=== PATIENT | male | born 1940 | race Caucasian/White ===

== ENCOUNTER → 2017-09-10 09:23 | Outpatient (CLI) | payer MEDICARE, SELFPAY ==
[2017-09-10 12:17] LABS: Anion Gap 7 (5-15); BUN 24 mg/dL (7-18); BUN/Creat Ratio 16.3 RATIO (10-20); Calcium,Total 9.6 mg/dL (8.5-10.1); Chloride 100 mmol/L (98-107); Cholesterol 149 mg/dL (200); Creatinine, Serum 1.47 mg/dL (0.70-1.30); EST Glomerular Filtration Rate 50 mL/min (>60); Est Glom Filt Rate - Afr Amer 60 mL/min (>60); Glucose 142 mg/dL (74-106); High Density Lipoprotein 44 mg/dL; Potassium 3.9 mmol/L (3.5-5.1); Sodium Level 137 mmol/L (136-145); Thyroid Stim Hormone (TSH) 2.27 uIU/mL (0.358-3.74); Triglycerides 235 mg/dL; Very Low Density Lipoprotein 47 mg/dL (5-40)
== END ==
PROVIDERS: Family Provider Family Medicine; PCP Family Medicine; Visit Provider Family Medicine
DX: I10 Essential (primary) hypertension (principal); E03.9 Hypothyroidism, unspecified; E78.00 Pure hypercholesterolemia, unspecified
CPT/HCPCS: 36415; 80048; 80061; 84443

== ENCOUNTER → 2019-01-11 07:42 | Outpatient (CLI) | payer MEDICARE, SELFPAY ==
[2018-12-23 11:14] VITALS: BMI 30.4
--- NOTE | 2019-01-11 07:43 | ECHOCS_ITS ---
Reason For Study: Cardiomyopathy Procedure This was a 2D Doppler, Color Flow transthoracic echocardiogram. The study was technically difficult. Contrast injection was performed. Exam performed in department. Left Ventricle Normal LV size. Moderate concentric left ventricular hypertrophy. Left ventricular systolic function is normal. The estimated ejection fraction is 55 %. Unable to assess diastolic dysfunction. No regional wall motion abnormalities noted. Right Ventricle Normal RV size. Normal systolic function. Atria Normal left atrium. Normal right atrium. No doppler evidence for ASD. Mitral Valve There is no mitral annular calcification. Normal mitral valve. Trivial mitral valve insufficiency. Tricuspid Valve Normal tricuspid valve. Trivial tricuspid valve insufficiency. Unable to estimate RV systolic pressure/pulmonary artery pressure due to technically difficult study. Aortic Valve Trisinus/trileaflet aortic valve. Normal aortic valve. Pulmonic Valve The pulmonic valve is not well visualized. Mild (1+) pulmonic valve insufficiency. Great Vessels Normal sized aortic root. Pericardium/Pleural No pericardial effusion. Medication 22 gauge I.V. with prn adaptor inserted into right arm. Diluted definity 3ml given slow IV push to enhance endocardial definition. MMode/2D Measurements & Calculations LVIDd: 5.7 cm IVSd: 1.5 cm Ao root diam: 3.5 cm LVIDs: 4.1 cm LVPWd: 1.6 cm LA dimension: 4.0 cm FS: 28.8 % LAV(MOD-bp): 49.7 ml LA A4 area: 16.9 cm2 RA A4 area: 18.6 cm2 LAV(MOD-bp) Indexed: 22.2 ml/m2 LAV(MOD-sp2): 58.1 ml LAV(MOD-sp4): 40.8 ml Time Measurements MV dec time: 0.32 sec Doppler Measurements & Calculations MV E max tate: 66.3 cm/sec MV V2 max: 124.2 cm/sec MV P1/2t max tate: 91.5 cm/sec MV A max tate: 103.3 cm/sec MV max P.2 mmHg MV P1/2t: 89.3 msec MV E/A: 0.64 MV V2 mean: 69.6 cm/sec MV dec slope: 299.9 cm/sec2 MV mean P.2 mmHg MV V2 VTI: 33.3 cm MVA(P1/2t): 2.5 cm2 Ao V2 max: 119.8 cm/sec LV V1 max: 78.6 cm/sec PA V2 max: 87.6 cm/sec Ao max P.7 mmHg LV V1 max P.5 mmHg Interpretation Summary The study was technically difficult. Contrast injection was performed. Left ventricular systolic function is normal. The estimated ejection fraction is 55 %. Moderate concentric left ventricular hypertrophy. Trivial mitral valve insufficiency. Trivial tricuspid valve insufficiency. Mild (1+) pulmonic valve insufficiency. Unable to estimate RV systolic pressure/pulmonary artery pressure due to technically difficult study. Unable to assess diastolic dysfunction. Ordering Physician: Remy Weiner Referring Physician: Anurag Andre MD Performed By: Damian Aranda RCS
== END ==
PROVIDERS: Family Provider Family Medicine; PCP Family Medicine; Referring Provider Internal Medicine Cardiovascular Disease; Visit Provider Internal Medicine Cardiovascular Disease
DX: I25.10 Atherosclerotic heart disease of native coronary artery without angina pectoris (principal); I42.9 Cardiomyopathy, unspecified
CPT/HCPCS: 93306; Q9957; A4216; C8929

== ENCOUNTER 2019-02-04 10:00 | Outpatient (RCR) | payer MEDICARE, SELFPAY ==
--- NOTE | 2018-12-22 10:19 | HP.PTEVAL_ITS ---
Patient's Visit Information CHRISTINA OWUSU is a 78 year old M referred to Physical Therapy by Eugene Andre MD with a diagnosis of R shoulder pain impingement. Date of Evaluation: 12/22/18 Physical Therapist: Arturo Kent DPT, OCS, CSCS - Visit Plan Frequency: 1x/Week Duration: 4-6 Weeks Plan: weekly to progress ROM and to strength, next session if motion better, gentle phase 3 strength. or increase frequency for US, manual. - Subjective Findings: Fell and hurt L shoulder coming in front door and tripped on threshold. Also fella week ago carrying items and landed on R shoulder. Pain started with first fall in [place] 2 yrs, it has hurt intermittently since then but is worse in the last week. Pain is top front R shoulder and is comfortable at rest. Hurts to reach and move at 9/10 trasnienty. Sleep is not effected sleeping on side. Could lift it fine two weeks ago. It is improving over the last week. Able to do Basic ADLS but has to put R arm in first. Basic ADLS are OK unless reaching up. Activities mostly normal except lifting overhead. - Pain R sholder Pain Intensity (Out of 10): 0 Pain Intensity Range: 0, 8 - Objective Cervical AROM 40 ext adn 50 rotations without pain. Scap ROM is fair and symmetrical. elbow adn wrist aROM WNL. L shoulder to 140 flexion abd, er to 60 IR L5 IR. R shoulder flexion to 90 and abd to 70 limited by pain, er to 60 and IR to L5. - alvarez wu, + neer R, - ext rotation lag test. Most notably painful trying to lift arm overhead. - Goals Goal 1:: 140 aROM R shoulder flexion abd without pain Goal Time Frame: 4-6 Weeks Goal 2:: Patient feel R shoulder 95% back to normal activity Goal Time Frame: 4-6 Weeks Goal 3:: <20% disability on quickdash - Rehabilitation Potential Physical Therapy Diagnosis: R shoulder pain Rehabilitation Potential: Fair - Anticipated Interventions Patient/Client Instruction: Educate patient on: Condition, Plan of Care For the Purpose of:: To decrease pain, To increase tolerance to activity/condition/position, To improve ability of physical actions for home/community/work/leisure Therapeutic Exercise to Include: Strength training, Passive ROM, Active ROM For the Purpose of:: To improve muscle performance and motor function, To increase tolerance to activity/condition/position Thank you for the opportunity to evaluate your patient. For Medicare and Medicare HMO plans, please review the plan of care and approve it. It will need to be FAXED BACK to us at [phone] for Medicare purposes. For Medicare only, by signing this I certify the plan of care. Please let me know if there are questions or concerns regarding this plan of care. Physician Signature: Date:
--- NOTE | 2019-01-21 13:49 | HP.PTREVAL ---
Eugene Andre MD, It has been my pleasure to treat CHRISTINA OWUSU over the last 4 visits for R shoulder pain impingement. Please see the progress note below for an update on the physical therapy plan of care! Subjective: Liked the ish. 3-4x/day and it hurts at first. Did not pull on band. Shoulder still hurts 7/10 daily reaching out side. Activities are normal including dressing , putting cot on still challenging. Reaching out for something can hurt. Objective/Function: AROM to 143 flexion abd and symmetrical with other. Still painful with flexion adn abd LLA but IR/ER, bi and tri not painful. Much better overall but noncomplinace with strengthening has been an issue. Pulleys for ROM working well for him at home. Plan Plan: f/u two weeks for gym strength or band strength flexion, abd, bi, tri. Conitnue intermittently evedry other for the next month to ensure progress towward same goals. Fair prognosis with compliance. Goals Goal 1:: 140 aROM R shoulder flexion abd without pain Goal Time Frame: 4-6 Weeks Goal Progress: Goal Met Goal 2:: Patient feel R shoulder 95% back to normal activity Goal Time Frame: 4-6 Weeks Goal Progress: Progressing Goal 3:: <20% disability on quickdash Anticipated Interventions Patient/Client Instruction: Educate patient on: Condition, Plan of Care For the Purpose of:: To decrease pain, To increase tolerance to activity/condition/position, To improve ability of physical actions for home/community/work/leisure Therapeutic Exercise to Include: Strength training, Passive ROM, Active ROM For the Purpose of:: To improve muscle performance and motor function, To increase tolerance to activity/condition/position Please do not hesitate to contact me at [phone] by phone or if you have questions or concerns regarding this new plan of care! Sincerely, Arturo Kent, DPT, OCS, CSCS
--- NOTE | 2019-02-04 10:17 | HP.PTDCSUM ---
HP - PT D/C Summary It has been my pleasure to treat CHRISTINA OWUSU under orders from Eugene Andre MD, for the diagnosis of R shoulder pain impingement for a total of 5 visit(s). Discharge Date: 02/04/19 Please see the following information for a summary of their discharge status. - Subjective Subjective: Shoulder doing much better,,, a whole better. 90% better. Putting coat on can still cause pain. Ready to be done. - Pain R sholder Pain Intensity (Out of 10): 0 - Overall Improvement % Improvement: 90 - Objective Objective/Function: Full symmetrical aROM without pain today, strength near symmetrical at 4/5 elbow adn shoulder. - Goals Goal 1:: 140 aROM R shoulder flexion abd without pain Goal Progress: Goal Met Goal 2:: Patient feel R shoulder 95% back to normal activity Goal Progress: 90% Goal 3:: <20% disability on quickdash Goal Progress: Goal Met - Plan Plan: d/c to HEP - D/C Information Discharge Comments: Pt doing well and will continue via HEP. If there are questions or concerns regarding this patient's physical therapy, please feel free to call me at [phone]. Thank you for the referral of this patient. Sincerely, Arturo Kent, DPT, OCS, CSCS
== END 2019-02-04 19:00 | disposition home or self-care (01) ==
LOC: PT 10:00
PROVIDERS: Family Provider Family Medicine; PCP Family Medicine; Referring Provider Family Medicine; Visit Provider Family Medicine
DX: M25.811 Other specified joint disorders, right shoulder (principal); W19.XXXD Unspecified fall, subsequent encounter
CPT/HCPCS: 97110; 97162; 97530

== ENCOUNTER → 2019-06-27 10:40 | Outpatient (CLI) | payer MEDICARE, SELFPAY ==
[2018-12-23 11:14] VITALS: BMI 30.4
[2019-06-27 12:50] LABS: ALB/GLOB Ratio 0.9 RATIO (0.9-2.4); AST(SGOT) 20 U/L (15-37); Alanine Aminotransfer ALT/SGPT 20 U/L (16-61); Albumin, Serum 3.6 g/dL (3.2-5.0); Alkaline Phosphatase 66 U/L (45-117); Anion Gap 8 (5-15); BUN 13 mg/dL (7-18); BUN/Creat Ratio 11.1 RATIO (10-20); Calcium,Total 8.9 mg/dL (8.5-10.1); Chloride 100 mmol/L (98-107); Cholesterol 151 mg/dL (200); Creatinine, Serum 1.17 mg/dL (0.70-1.30); EST Glomerular Filtration Rate 64 mL/min (>60); Est Glom Filt Rate - Afr Amer 78 mL/min (>60); Globulin 3.9 g/dL (2.2-4.2); Glucose 222 mg/dL (74-106); High Density Lipoprotein 47 mg/dL; Protein, Total 7.5 g/dL (6.4-8.2); Sodium Level 134 mmol/L (136-145); Thyroid Stim Hormone (TSH) 2.06 uIU/mL (0.358-3.74); Triglycerides 215 mg/dL; Very Low Density Lipoprotein 43 mg/dL (5-40)
== END ==
PROVIDERS: PCP Family Medicine; Visit Provider Family Medicine
DX: E11.69 Type 2 diabetes mellitus with other specified complication (principal)
CPT/HCPCS: 36415; 80053; 80061; 84403; 84443

== ENCOUNTER → 2020-04-17 15:55 | Outpatient (CLI) | payer MEDICARE, SELFPAY ==
[2020-03-19 10:28] VITALS: BMI 29.1
[2020-04-17 18:11] LABS: Anion Gap 7 (5-15); BUN 19 mg/dL (7-18); BUN/Creat Ratio 14.3 RATIO (10-20); Calcium,Total 9.2 mg/dL (8.5-10.1); Chloride 103 mmol/L (98-107); Creatinine, Serum 1.33 mg/dL (0.70-1.30); EST Glomerular Filtration Rate 55 mL/min (>60); Est Glom Filt Rate - Afr Amer 67 mL/min (>60); Glucose 113 mg/dL (74-106); Potassium 3.9 mmol/L (3.5-5.1); Sodium Level 138 mmol/L (136-145); Thyroid Stim Hormone (TSH) 1.83 uIU/mL (0.358-3.74)
== END ==
PROVIDERS: PCP Family Medicine; Referring Provider Family Medicine; Visit Provider Family Medicine
DX: E11.69 Type 2 diabetes mellitus with other specified complication (principal); E03.9 Hypothyroidism, unspecified
CPT/HCPCS: 36415; 80048; 84443

== ENCOUNTER 2020-04-19 16:53 | Outpatient (RCR) | payer MEDICARE, SELFPAY ==
[2020-03-19 10:28] VITALS: BMI 29.1
[2020-04-19] MEDS: COVID-19 VACC, MRNA(PFIZER)/PF 30 MCG/0.3 ML SYRINGE IM (10:34)
[2020-05-10] MEDS: COVID-19 VACC, MRNA(PFIZER)/PF 30 MCG/0.3 ML SYRINGE IM (10:21)
== END 2020-04-19 23:59 ==
LOC: IMMUN 16:53
PROVIDERS: PCP Family Medicine; Visit Provider Family Medicine
DX: Z23 Encounter for immunization (principal)
CPT/HCPCS: 0001A; 0002A

== ENCOUNTER → 2020-07-18 11:24 | Outpatient (CLI) | payer MEDICARE, SELFPAY ==
[2020-03-19 10:28] VITALS: BMI 29.1
[2020-07-18 15:13] LABS: Anion Gap 7 (5-15); BUN 19 mg/dL (7-18); BUN/Creat Ratio 14.7 RATIO (10-20); Chloride 103 mmol/L (98-107); Creatinine, Serum 1.29 mg/dL (0.70-1.30); EST Glomerular Filtration Rate 57 mL/min (>60); Est Glom Filt Rate - Afr Amer 69 mL/min (>60); Glucose 176 mg/dL (74-106); Potassium 4.1 mmol/L (3.5-5.1); Sodium Level 138 mmol/L (136-145)
== END ==
PROVIDERS: PCP Family Medicine; Referring Provider Family Medicine; Visit Provider Family Medicine
DX: E11.69 Type 2 diabetes mellitus with other specified complication (principal)
CPT/HCPCS: 36415; 80048

== ENCOUNTER 2020-09-14 16:35 | Emergency (ER) | payer MEDICARE, SELFPAY ==
[2020-03-19 10:28] VITALS: BMI 29.1
[2020-09-14 16:37] VITALS: BP 129/67; PULSE 77; RESP 14; TEMP 35.3; O2SAT 97; BMI 29.0
--- NOTE | 2020-09-14 18:29 | EX.ED.GENINJ ---
HPI History of Present Illness Chief Complaint: Laceration Informant: patient Narrative Narrative: Patient is a 80-year-old male who presents to the emergency department for falling and hitting his head. He has a laceration above his left eyebrow and under his left eye. He states that he was wearing sunglasses and this is what caused his cut. He is not sure when his last tetanus shot was. He denies being on any blood thinning medications. He denies losing consciousness. No vision changes. No neck pain. Denies a headache. No nausea/vomiting. No chest pain or shortness of breath. He does have an abrasion to his left shoulder and left knee but denies any significant pain otherwise. [facility] Medical History (Updated 09/14/20 @ 19:[address] Sean Grubbs ) Abdominal pain Atherosclerotic heart disease of [place] coronary artery without angina pectoris CHF (congestive heart failure) Essential hypertension GERD (gastroesophageal reflux disease) Nonischemic cardiomyopathy MICHELLE (obstructive sleep apnea) Pure hypercholesterolemia RBBB (right bundle branch block) Type 2 diabetes mellitus Home Medications aspirin 81 mg PO QHS 12/07/12 [History Last Taken Unknown] levothyroxine 50 mcg PO QHS 12/07/12 [History Last Taken Unknown] omeprazole 20 mg PO DAILY 12/07/12 [History Last Taken Unknown] simvastatin 40 mg PO QHS 12/07/12 [History Last Taken Unknown] fexofenadine 180 mg tablet 180 mg PO DAILY PRN 12/21/18 [History Last Taken Unknown] cholecalciferol (vitamin D3) 25 mcg (1,000 unit) capsule 1,000 unit PO DAILY 12/23/18 [History Last Taken Unknown] metformin 500 mg tablet,extended release 24 hr 1,000 mg PO BID tab 12/23/18 [History Last Taken Unknown] omega-3 fatty acids 1,000 mg capsule 1,000 mg PO DAILY 12/23/18 [History Last Taken Unknown] cyanocobalamin (vitamin B-12) 2,500 mcg tablet 1,000 mcg PO DAILY tab 03/19/20 [History Last Taken Unknown] spironolactone 25 mg tablet 25 mg PO DAILY #90 tab 05/07/20 [Rx Last Taken Unknown] losartan 25 mg tablet See Rx Instructions .ROUTE .COMPLEX #90 tablet 05/14/20 [Rx Last Taken Unknown] carvedilol 12.5 mg tablet 18.75 mg PO BID #240 tab 08/27/20 [Rx Last Taken Unknown] Allergy/AdvReac Type Severity Reaction Status Date / Time lidocaine AdvReac Hives Verified 09/14/20 16:36 Penicillins AdvReac Hives Verified 09/14/20 16:36 Sulfa (Sulfonamide AdvReac Hives Verified 09/14/20 16:36 Antibiotics) Family History Mother Colon cancer Surgical History History of right and left heart catheterization (LHC) (~04/20/09) Social History Smoking Status: Former smoker alcohol intake: current details: rare substance use type: does not use caffeine: Yes Type: coffee Number of servings: 2 ROS ROS ED Constitutional Constitutional ED: Denies chills or fever(s) Eyes Eyes: Denies blurry vision or change in vision ENT ENT ED: Denies epistaxis or rhinorrhea Cardiovascular Cardiovascular: Denies chest pain or palpitations Respiratory/Chest Respiratory/Chest: Denies cough, dyspnea or dyspnea on exertion Gastrointestinal Gastrointestinal: Denies abdominal pain, diarrhea, nausea or vomiting Genitourinary Genitourinary ED: Denies dysuria, hematuria or urinary frequency Musculoskeletal Musculoskeletal: Denies back pain or neck pain Integumentary Reports Abrasions and other Details: Facial laceration Neurologic Neurologic: Denies dizziness, headache(s) or weakness EXAM Physical Exam Const Vital Signs: 09/14/20 16:37 09/14/20 19:58 Temperature 95.6 F L Temperature Source Temporal Pulse Rate 77 Respiratory Rate 14 18 Blood Pressure 129/67 H Blood Pressure Mean 87 Pulse Ox 97 Oxygen Delivery Method Room Air Positive well nourished and well developed General Appearance ED: well developed and NAD HEENT Reports normocephalic and moist mucous membranes HEENT Narrative: There is swelling around the left eye with bruising. Midface is stable without tenderness to palpation of the facial bones. Full range of motion of jaw. trauma Eyes PERRL and EOMs intact bilaterally Neck supple General: Negative for tenderness Chest Wall inspection of chest normal Resp normal respiratory effort and clear to auscultation bilaterally Auscultation: Negative for rales, rhonchi or wheezes Cardio regular rate, regular rhythm and no murmurs GI non-tender Palpation: soft; Negative for guarding or rebound tenderness present Back/Spine no CVA tenderness Extremity normal to inspection General Extremety ED: Negative for edema or tenderness General Extremity: Negative for edema Neuro oriented x3, CN's II-XII intact bilaterally and no sensory deficits noted Sensorium / Orientation: alert Motor Exam: strength 5/5 throughout Psych mental status grossly normal Skin Skin Narrative: 4 cm linear laceration above eyebrow. This is not gapped. There is a 2 cm laceration in the left eyebrow which has a slow venous ooze present. Less than 1 cm laceration with abrasion surrounding it under the left eye. PROC Procedures Lacerations facial lac: Length: 0.79 in Depth: Skin Shape: Linear Prep: Sterile Conditions and Shure-Clens Laceration repair: Irrigated and Lidocaine with epi Number of Sutures/[place]: 3 Suture Information: Simple and 6-0 Comment: Laceration under the iron required 1 simple interrupted suture. This laceration was 1 cm in length. MDM MDM MDM Narrative Medical decision making narrative: Patient presents the ED for fall causing a laceration around his left eye as he hit his sunglasses when falling. I do not feel patient requires CT imaging of the head or face as he is low risk for clinically significant intracranial hemorrhage. All the bones are nontender. Will apply let to the area as patient does have significant pain with even light palpation around the wound. Patient updated on his tetanus. Patient's lacerations were repaired using sutures. He tolerated this well without any acute complication. He is to monitor for evidence of infection. He is to return to the emergency department if he develops any significant headache, vision changes. Patient's wound was dressed with antibiotic ointment, Band-Aid. He is to have the sutures removed in 5 to 7 days. He understands and is agreeable to plan. All questions were answered. Discharge Plan Triage Chief Complaint: Laceration ED Provider: Sean Grubbs Dx/Rx/DC Orders Clinical Impression: Face lacerations Instructions: ED Laceration: All Closures Prescriptions: No Action omega-3 fatty acids [Fish Oil Concentrate] 1,000 mg capsule 1,000 mg PO DAILY RF: 0 cholecalciferol (vitamin D3) 1,000 unit capsule 1,000 unit PO DAILY RF: 0 cyanocobalamin (vitamin B-12) 2,500 mcg tablet 1,000 mcg PO DAILY RF: 0 fexofenadine [Jalyn Allergy] 180 mg tablet 180 mg PO DAILY PRN (Reason: Allergy Symptoms) RF: 0 simvastatin 40 MG tablet 40 mg PO QHS RF: 0 levothyroxine 50 MCG tablet 50 mcg PO QHS RF: 0 omeprazole 20 MG capsule 20 mg PO DAILY RF: 0 aspirin 81 MG tablet,chewable 81 mg PO QHS RF: 0 metformin 500 mg tablet extended release 24 hr 1,000 mg PO BID RF: 0 spironolactone 25 mg tablet 25 mg PO DAILY Qty: 90 RF: 3 losartan 25 mg tablet See Rx Instructions .ROUTE .COMPLEX Qty: 90 RF: 3 carvedilol 12.5 mg tablet 18.75 mg PO BID Qty: 240 RF: 3 Primary Care Provider: Eugene Andre Referrals: Eugene Andre MD [Primary Care Provider] - 7 Days for suture removal Disposition Disposition: Home, Self Care Discharge Date/Time: 09/14/20 19:59
[2020-09-14] MEDS: Lidocaine/Epi/Tetracaine 50 ML 1 APPLIC TOPICAL (18:36)
[2020-09-14] MEDS: Diphth,Pertuss(Acell),Tet Vac 0.5 ML Vial IM (19:02)
[2020-09-14] MEDS: Lidocaine 1% /Epi 1:100 (20ml) 20 ML Vial 5 ML INFILT (19:57)
[2020-09-14 19:58] VITALS: RESP 18
== END 2020-09-14 19:59 | disposition home or self-care (01) ==
PROVIDERS: Emergency Provider Emergency Medicine; PCP Family Medicine
DX: S01.112A Laceration without foreign body of left eyelid and periocular area, initial encounter (principal); S01.81XA Laceration without foreign body of other part of head, initial encounter; S40.212A Abrasion of left shoulder, initial encounter; S80.212A Abrasion, left knee, initial encounter; Z23 Encounter for immunization; W19.XXXA Unspecified fall, initial encounter; Y93.9 Activity, unspecified; Y92.9 Unspecified place or not applicable; Y99.9 Unspecified external cause status; I25.10 Atherosclerotic heart disease of native coronary artery without angina pectoris; I11.0 Hypertensive heart disease with heart failure; I50.9 Heart failure, unspecified; E11.9 Type 2 diabetes mellitus without complications; E78.00 Pure hypercholesterolemia, unspecified; K21.9 Gastro-esophageal reflux disease without esophagitis; G47.33 Obstructive sleep apnea (adult) (pediatric); Z79.82 Long term (current) use of aspirin; Z79.84 Long term (current) use of oral hypoglycemic drugs; Z79.899 Other long term (current) drug therapy; Z87.891 Personal history of nicotine dependence
CPT/HCPCS: 12014; 90471; 90715; 99282

== ENCOUNTER → 2020-10-24 08:37 | Outpatient (CLI) | payer MEDICARE, SELFPAY ==
[2020-10-24 10:09] LABS: Hematocrit 40.1 % (40-54); Hemoglobin 13.6 g/dL (13.0-16.5); Mean Corp Hgb Conc 33.9 g/dL (32-36); Mean Corpuscular Hgb 30.8 pg (27.0-32.0); Mean Corpuscular Volume 90.7 fL (80-94); Mean Platelet Vol. 10.2 fl (6.2-12.0); Platelet Count 239 K/mm3 (150-450); RBC Distribution Width CV 12.9 % (11.6-14.6); RBC Distribution Width SD 42.4 fl (35.1-43.9); Red Blood Count 4.42 M/mm3 (4.6-6.2); White Blood Count 5.8 K/mm3 (4.4-11.0)
[2020-10-24 10:25] LABS: Vitamin B12 737 pg/mL (211-911); Vitamin D,25 Hydroxy 59.6 ng/mL
[2020-10-24 10:32] LABS: Anion Gap 6 (5-15); BUN 16 mg/dL (7-18); BUN/Creat Ratio 12.9 RATIO (10-20); Calcium,Total 9.2 mg/dL (8.5-10.1); Chloride 106 mmol/L (98-107); Cholesterol 139 mg/dL (200); Creatinine, Serum 1.24 mg/dL (0.70-1.30); EST Glomerular Filtration Rate 60 mL/min (>60); Est Glom Filt Rate - Afr Amer 72 mL/min (>60); Glucose 143 mg/dL (74-106); High Density Lipoprotein 47 mg/dL; Sodium Level 137 mmol/L (136-145); Thyroid Stim Hormone (TSH) 1.86 uIU/mL (0.358-3.74); Triglycerides 156 mg/dL; Very Low Density Lipoprotein 31 mg/dL (5-40)
== END ==
PROVIDERS: PCP Family Medicine; Referring Provider Family Medicine; Visit Provider Family Medicine
DX: E11.69 Type 2 diabetes mellitus with other specified complication (principal); E11.22 Type 2 diabetes mellitus with diabetic chronic kidney disease; N18.30 Chronic kidney disease, stage 3 unspecified; R53.1 Weakness
CPT/HCPCS: 36415; 80048; 80061; 82306; 82607; 84443; 85027

== ENCOUNTER 2020-10-25 14:30 | Outpatient (RCR) | payer MEDICARE, SELFPAY ==
[2020-09-18 09:36] VITALS: BMI 29.0
--- NOTE | 2020-09-28 09:56 | HP.PTEVAL_ITS ---
Patient's Visit Information CHRISTINA OWUSU is a 80 year old M referred to Physical Therapy by Dr. Eugene Andre MD with a diagnosis of WEAKNESS PROXIMAL LEGS ,FALL AT HOME. Date of Evaluation: 09/28/20 Physical Therapist: Se Gan, PT, Cert MDT, OCS - Visit Plan Frequency: 2x /Week Duration: 4 Weeks Plan: PT INTERVENTIONS LE STRENGTHENING,PROGRESSIVE BALANCE PROGAM,ENDURANCE PROGRAM AND FUNCTIONAL STRENGTHENING. - Subjective This 80 y/o male presents to physical therapy with weakness legs and falls at home. Patient has had progressive weakness in legs causing falls. Patient last fall last Thursday trying to step on cement pad and tripped. Patient get worse in the evening because more fatigue. Patient denies pain. Patient spouse assist with dressing LE with socks and shoes. Patient does sponge bathing due to difficulty in/out of tube. Spouse does all the cooking and cleaning. Patient has cane but doesn't use. Patient 1story home with one step . Patient seen Dr recommended PT due to weakness in legs. Patients goal to get stronger and no falls. SOCAIL: - Objective POSTURE: mild forward posture. GAIT: reciprocal pattern slow bruce ,unsteady. NEURO: denies paresthesia/tingling. BALANCE: GOOD-. STAIRS: one step at time with rail. MMT: quads/hams 4-/5,hip flexion, hip abduction 3+/5,ankle 4/5. FLEXABLITY: hams mild tight - Balance/Special Test Scores Functional Gait Assessment Score: 17 % Disability: 43.3400 CATSIB Score (Max score 120 seconds): 75 - Goals Goal 1:: I with HEP. Goal Time Frame: 4-6 Weeks Goal 2:: Patient increase strength quads/hams 4/5 ,hip flexion/abduction 4- /5,ankle 5/5 to improve gait. Goal Time Frame: 4-6 Weeks Goal 3:: Patient to improve CATSIB by 5 points or > to decrease risk of falls Goal Time Frame: 4-6 Weeks Goal 4:: Patient to improve functional gait assessment score by 5 points or > to decrease risk of falls Goal Time Frame: 4-6 Weeks Goal 5:: Patient to improve LFES score by 5 points or> to improve QOL and function. Goal Time Frame: 4-6 Weeks - Rehabilitation Potential Physical Therapy Diagnosis: This patient has weakness BLE ,falls with impaired balance and gait thus benefit from skilled PT Rehabilitation Potential: Good - Anticipated Interventions Patient/Client Instruction: Educate patient on: Condition, Plan of Care For the Purpose of:: To increase oxygenation perfusion, To improve ability to perform ADL's, To increase tolerance to activity/condition/position, To improve performance and independence with ADL's, To improve ability of physical actions for home/community/work/leisure, To improve gait and locomotor functions, To improve balance, To improve safety with gait, To assume or resume ADL's, To prevent re-injury Therapeutic Exercise to Include: Strength training, Endurance training, Balance training, Flexibilty training, Gait and locomotor training For the Purpose of:: To improve muscle performance and motor function, To improve ability to perform ADL's, To increase tolerance to activity/condition/position, To improve performance and independence with ADL's, To improve ability of physical actions for home/community/work/leisure, To improve gait and locomotor functions, To improve endurance, To improve balance, To improve safety with gait, To assume or resume ADL's, To improve ability to perform tasks related to life management Thank you for the opportunity to evaluate your patient. For Medicare and Medicare HMO plans, please review the plan of care and approve it. It will need to be FAXED BACK to us at [phone] for Medicare purposes. For Medicare only, by signing this I certify the plan of care. Please let me know if there are questions or concerns regarding this plan of care. Physician Signature: Date:
--- NOTE | 2020-10-25 14:59 | HP.PTREVAL_ITS ---
Dr. Eugene Andre MD, It has been my pleasure to treat CHRISTINA OWUSU over the last 9 visits for WEAKNESS PROXIMAL LEGS ,FALL AT HOME. Please see the progress note below for an update on the physical therapy plan of care! Subjective: Doing well ..no falls. Seen DR everything looked good with bloed work Objective/Function: POSTURE: MILD FORWARD POSTURE. GAIT: RECIPROCAL PATTERN MILD FORWARD POSTURE. MMT:QUADS/HAMS 4/5 ,HIP FLEXION. BALANCE: GOOD- no device Plan Plan: cont with POC 2xweek for 3 weeks. PT INTERVENTIONS LE STRENGTHENING,PROGRESSIVE BALANCE PROGAM,ENDURANCE PROGRAM AND FUNCTIONAL STRENGTHENING. Balance/Gait/Functional tests - Balance/Special Test Scores Functional Gait Assessment Score: 17 % Disability: 43.3400 CATSIB Score (Max score 120 seconds): 100 Lower Extremity Functional Score: 43 Goals Goal 1:: I with HEP. Goal Time Frame: 4-6 Weeks Goal Progress: Progressing Goal 2:: Patient increase strength quads/hams 4/5 ,hip flexion/abduction 4- /5,ankle 5/5 to improve gait. Goal Time Frame: 4-6 Weeks Goal Progress: Progressing Goal 3:: Patient to improve CATSIB by 5 points or > to decrease risk of falls Goal Time Frame: 4-6 Weeks Goal Progress: Progressing Goal 4:: Patient to improve functional gait assessment score by 5 points or > to decrease risk of falls Goal Time Frame: 4-6 Weeks Goal Progress: Progressing Goal 5:: Patient to improve LFES score by 5 points or> to improve QOL and function. Goal Time Frame: 4-6 Weeks Goal Progress: Progressing Anticipated Interventions Patient/Client Instruction: Educate patient on: Condition, Plan of Care For the Purpose of:: To increase oxygenation perfusion, To improve ability to perform ADL's, To increase tolerance to activity/condition/position, To improve performance and independence with ADL's, To improve ability of physical actions for home/community/work/leisure, To improve gait and locomotor functions, To improve balance, To improve safety with gait, To assume or resume ADL's, To prevent re-injury Therapeutic Exercise to Include: Strength training, Endurance training, Balance training, Flexibilty training, Gait and locomotor training For the Purpose of:: To improve muscle performance and motor function, To improve ability to perform ADL's, To increase tolerance to activity/condition/position, To improve performance and independence with ADL's, To improve ability of physical actions for home/community/work/leisure, To improve gait and locomotor functions, To improve endurance, To improve balance, To improve safety with gait, To assume or resume ADL's, To improve ability to perform tasks related to life management Please do not hesitate to contact me at [phone] by phone or if you have questions or concerns regarding this new plan of care! Sincerely, Se Gan, PT, Cert MDT, OCS
--- NOTE | 2020-10-26 12:30 | HP.PTDCSUM_ITS ---
It has been my pleasure to treat CHRISTINA OWUSU referred by Dr. Eugene Andre MD, with the diagnosis of WEAKNESS PROXIMAL LEGS ,FALL AT HOME for a total of 9 visit(s). Discharge Date: 10/26/20 Please see the following information for a summary of their discharge status. Subjective: Doing well ..no falls. Seen DR everything looked good with bloOd wo rk % Improvement: 70 Objective/Function: POSTURE: MILD FORWARD POSTURE. GAIT: RECIPROCAL PATTERN MILD FORWARD POSTURE. MMT:QUADS/HAMS 4/5 ,HIP FLEXION. BALANCE: GOOD- no device Goal 1:: I with HEP. Goal Progress: Progressing Goal 2:: Patient increase strength quads/hams 4/5 ,hip flexion/abduction 4- /5,ankle 5/5 to improve gait. Goal Progress: Progressing Goal 3:: Patient to improve CATSIB by 5 points or > to decrease risk of falls Goal Progress: Progressing Goal 4:: Patient to improve functional gait assessment score by 5 points or > to decrease risk of falls Goal Progress: Progressing Goal 5:: Patient to improve LFES score by 5 points or> to improve QOL and function. Goal Progress: Progressing Plan: D/C TO HEP Discharge Comments: HEP If there are questions or concerns regarding this patient's physical therapy, please feel free to call me at [phone]. Thank you for the referral of this patient. Sincerely, Se Gan PT, Cert MDT, OCS Balance/Gait/Functional tests - Balance/Special Test Scores Functional Gait Assessment Score: 17 % Disability: 43.3400 CATSIB Score (Max score 120 seconds): 100 Lower Extremity Functional Score: 43
== END 2020-10-25 19:00 | disposition home or self-care (01) ==
LOC: PT 14:30
PROVIDERS: PCP Family Medicine; Referring Provider Family Medicine; Visit Provider Family Medicine
DX: R53.1 Weakness (principal); W19.XXXD Unspecified fall, subsequent encounter
CPT/HCPCS: 97110; 97162; 97530

== ENCOUNTER → 2021-01-21 11:32 | Outpatient (CLI) | payer MEDICARE, SELFPAY ==
[2021-01-23 16:55] LABS: V-Zoster IgG (Immunity) 2820 index (Immune >165)
== END ==
PROVIDERS: PCP Family Medicine; Referring Provider Family Medicine; Visit Provider Family Medicine
DX: Z01.84 Encounter for antibody response examination (principal); E11.9 Type 2 diabetes mellitus without complications; E78.5 Hyperlipidemia, unspecified
CPT/HCPCS: 36415; 86787

== ENCOUNTER 2021-04-02 23:04 | Emergency (ER) | payer MEDICARE, SELFPAY ==
[2021-04-02 23:05] VITALS: BP 116/64; PULSE 70; RESP 18; TEMP 36.1; O2SAT 96; BMI 27.3
--- NOTE | 2021-04-02 23:12 | EKG12_ITS ---
Test Reason : SYNCOPE Blood Pressure : / mmHG Vent. Rate : 069 BPM Atrial Rate : 069 BPM P-R Int : 254 ms QRS Dur : 120 ms QT Int : 474 ms P-R-T Axes : 046 002 -22 degrees QTc Int : 507 ms Sinus rhythm with 1st degree A-V block with occasional Premature ventricular complexes and Premature atrial complexes Right bundle branch block Abnormal ECG Confirmed by FRANK MONGE, DESIREE ([id number]), online editor SORIN CAMPOS ([id number]) on 04/04/2021 8:57:51 AM Referred By: KELSEY Confirmed By:DESIREE MARIE MD
--- NOTE | 2021-04-02 23:14 | EX.ED.DYSGE1 ---
HPI History of Present Illness Chief Complaint: Syncope Informant: patient and EMS Onset/Context/Timing Onset: Today (JPTA) Context: Gradual Onset Timing: Intermittent (one episode) and Lasts (around 10-15 min) Quality: lightheaded, near-syncope Current Severity: Gone Maximum Severity: Severe Worsened by: standing Relieved by: sitting Associated Symptoms Associated Symptoms: sweating, nausea Narrative Narrative: Patient states he got up tonight, started feeling lightheaded on his way to the bathroom, he was going to urinate. States he felt lightheaded, he sat down on the toilet to urinate, as his lightheadedness became worse and he felt like he was going to pass out and in the process felt sweaty and nauseated. This is all before he attempted to urinate. He was not trying to have a bowel movement. He did not have any other prodromal symptoms such as chest discomfort, palpitations, headache, dyspnea. He has had no recent travel, immobilization, hospitalization, or surgery. No history of DVT or PE. He takes a baby aspirin daily, no anticoagulants. He is on carvedilol for heart failure. Has taken his nighttime medications already tonight. He missed his morning medicines on accident, which he does do not infrequently. EMS reports that upon arrival, his systolic blood pressure was in the 80s and heart rate was in the 40s, the patient was still symptomatic but recovering. By the time they arrived to the hospital his blood pressure was 110 systolic and his heart rate is in the 60s. They also report that the patient's who was not present at this time told them that he seemed like he was not feeling well earlier. The patient denies this. States he was shopping with his earlier. She waited in the car while he went in to do some shopping and came back out and forgot where they parked and spent some time searching for the vehicle which he eventually found, he states other than that, he was fine and he felt like he simply forgot where they parked. He has been eating and drinking normally today. Prior similar symptoms: No Recent Illness/Hospitalization: No [facility] Medical History (Updated 04/03/21 @ 00:[address] Marco A Nolen MD) Abdominal pain Atherosclerotic heart disease of [place] coronary artery without angina pectoris CHF (congestive heart failure) Essential hypertension GERD (gastroesophageal reflux disease) Nonischemic cardiomyopathy MICHELLE (obstructive sleep apnea) Pure hypercholesterolemia RBBB (right bundle branch block) Type 2 diabetes mellitus Home Medications aspirin 81 mg PO QHS 12/07/12 [History Last Taken Unknown] levothyroxine 50 mcg PO QHS 12/07/12 [History Last Taken Unknown] omeprazole 20 mg PO DAILY 12/07/12 [History Last Taken Unknown] simvastatin 40 mg PO QHS 12/07/12 [History Last Taken Unknown] fexofenadine 180 mg tablet 180 mg PO DAILY PRN 12/21/18 [History Last Taken Unknown] cholecalciferol (vitamin D3) 25 mcg (1,000 unit) capsule 1,000 unit PO DAILY 12/23/18 [History Last Taken Unknown] metformin 500 mg tablet,extended release 24 hr 1,000 mg PO BID tab 12/23/18 [History Last Taken Unknown] omega-3 fatty acids 1,000 mg capsule 1,000 mg PO DAILY 12/23/18 [History Last Taken Unknown] cyanocobalamin (vitamin B-12) 2,500 mcg tablet 1,000 mcg PO DAILY tab 03/19/20 [History Last Taken Unknown] spironolactone 25 mg tablet 25 mg PO DAILY #90 tab 05/07/20 [Rx Last Taken Unknown] losartan 25 mg tablet See Rx Instructions .ROUTE .COMPLEX #90 tablet 05/14/20 [Rx Last Taken Unknown] fexofenadine 60 mg PO Q12H 04/02/21 [History Last Taken Unknown] carvedilol 12.5 mg PO BID #240 tab 04/03/21 [Rx Last Taken Unknown] Allergy/AdvReac Type Severity Reaction Status Date / Time lidocaine AdvReac Hives Verified 04/02/21 23:12 Penicillins AdvReac Hives Verified 04/02/21 23:12 Sulfa (Sulfonamide AdvReac Hives Verified 04/02/21 23:12 Antibiotics) Family History Mother Colon cancer Surgical History History of right and left heart catheterization (LHC) (~04/20/09) Social History Smoking Status: Former smoker alcohol intake: current details: rare substance use type: does not use caffeine: Yes Type: coffee Number of servings: 2 ROS ROS ED Constitutional Constitutional ED: Reports malaise and sweats; Denies chills or fever(s) Eyes Eyes: Denies change in vision or diplopia ENT ENT ED: Denies rhinorrhea or sore throat Cardiovascular Cardiovascular: Denies chest pain or palpitations Respiratory/Chest Respiratory/Chest: Denies cough or dyspnea Gastrointestinal Gastrointestinal: Reports nausea; Denies abdominal pain, diarrhea or vomiting Genitourinary Genitourinary ED: Denies dysuria or hematuria Musculoskeletal Musculoskeletal: Denies back pain or neck pain Integumentary Denies abscess or rash Neurologic Neurologic: Denies headache(s), paresthesias or weakness Psychiatric Psychiatric: Denies anxiety or suicidal thoughts EXAM Physical Exam Const Vital Signs: 04/02/21 23:05 04/02/21 23:15 04/03/21 00:37 Temperature 97 F L Temperature Source Temporal Pulse Rate 70 Pulse Rate [Lying] 74 Pulse Rate [Sitting] 79 Pulse Rate [Standing] 77 Respiratory Rate 18 Respiratory Effort Normal Respiratory Pattern Normal Blood Pressure 116/64 Blood Pressure [Lying] 110/67 Blood Pressure [Sitting] 122/41 H Blood Pressure [Standing] 103/62 Blood Pressure Mean 81 Blood Pressure Mean [Lying] 81 Blood Pressure Mean [Sitting] 68 Blood Pressure Mean [Standing] 75 Pulse Ox 96 Oxygen Delivery Method Room Air Positive well nourished and well developed General Appearance ED: well developed and NAD HEENT Reports moist mucous membranes normocephalic and atraumatic Eyes PERRL and EOMs intact bilaterally Neck full ROM and supple Resp normal respiratory effort and clear to auscultation bilaterally Cardio regular rate, regular rhythm, no murmurs and no JVD Cardio Narrative: occasional irregularity GI non-tender and non-distended Auscultation: normoactive bowel sounds Palpation: soft Back/Spine no CVA tenderness General Back: other FROM Extremity normal to inspection, no calf tenderness and no pedal edema General Extremety ED: Negative for edema, pulses abnormal or tenderness General Extremity: Negative for edema or pulses abnormal Neuro oriented x3, CN's II-XII intact bilaterally and no sensory deficits noted Sensorium / Orientation: awake and alert Motor Exam: strength 5/5 throughout Skin no rashes or lesions noted and no wounds MDM MDM MDM Narrative Medical decision making narrative: Patient was monitored for couple hours in the emergency department, he had no recurrent symptoms and felt fine, his vital signs remained stable. Orthostatics are negative. His initial troponin is negative with an unchanged EKG except for some ectopy, and his repeat 2-hour troponin is 15 as well for a delta of 0. Offered admission but he would prefer to go home if it is safe I think this is reasonable, but he is on a good dose of Coreg and since he was bradycardic, I think decreasing this and having him follow-up with his financial accounting analyst would be the best solution at this time. We discussed reasons to return to the ER. We got him out of bed and ambulated him prior to discharge and he did well without any symptoms or major changes in his vital signs. Patient reports that 18.75 mg of carvedilol twice daily is accurate. We will decrease him to 12.5 mg twice daily until he follows up. Lab Data Attestation: I reviewed the patient's lab results. Labs: Laboratory Results - last 24 hr 04/02/21 04/02/21 04/03/21 23:20 23:20 01:19 WBC 5.7 RBC 3.97 L Hgb 12.4 L Hct 37.1 L MCV 93.5 MCH 31.2 MCHC 33.4 RDW Std Deviation 45.3 H RDW Coeff of Barbara 13.3 Plt Count 211 MPV 9.7 Immature Gran % (Auto) 0.200 Neut % (Auto) 63.3 Lymph % (Auto) 22.9 [place] % (Auto) 12.3 H Eos % (Auto) 1.1 Baso % (Auto) 0.2 Absolute Neuts (auto) 3.6 Absolute Lymphs (auto) 1.30 Nucleated RBC % 0 Differential Comment SCANNED Platelet Estimate ADEQUATE Sodium 137 Potassium 3.5 Chloride 104 Carbon Dioxide 24.0 Anion Gap 9 BUN 17 Creatinine 1.45 H Estim Creat Clear Calc 46.08 Est GFR (MDRD) Af Amer 60 Est GFR (MDRD) Non-Af 50 L BUN/Creatinine Ratio 11.7 Glucose 203 H Calcium 8.2 L Troponin I High Sens 15 15 EKG Initial EKG: Attestation: I personally reviewed and interpreted this EKG as follows: Interpretation: Sinus Rhythm, No Acute Injury Pattern, RBBB and AV Block (1st deg) Comments: PVC Prior EKG tracings: available for review Prior: Unchanged Discharge Plan Triage Chief Complaint: Syncope ED Provider: Marco A Nolen Dx/Rx/DC Orders Clinical Impression: Near syncope Instructions: ED Near-Fainting, Uncertain Cause Prescriptions: Continued omega-3 fatty acids [Fish Oil Concentrate] 1,000 mg capsule 1,000 mg PO DAILY RF: 0 cholecalciferol (vitamin D3) 1,000 unit capsule 1,000 unit PO DAILY RF: 0 cyanocobalamin (vitamin B-12) 2,500 mcg tablet 1,000 mcg PO DAILY RF: 0 fexofenadine [Jalyn Allergy] 180 mg tablet 180 mg PO DAILY PRN (Reason: Allergy Symptoms) RF: 0 simvastatin 40 MG tablet 40 mg PO QHS RF: 0 levothyroxine 50 MCG tablet 50 mcg PO QHS RF: 0 omeprazole 20 MG capsule 20 mg PO DAILY RF: 0 aspirin 81 MG tablet,chewable 81 mg PO QHS RF: 0 metformin 500 mg tablet extended release 24 hr 1,000 mg PO BID RF: 0 fexofenadine 30 mg Tablet 60 mg PO Q12H RF: 0 spironolactone 25 mg tablet 25 mg PO DAILY Qty: 90 RF: 3 losartan 25 mg tablet See Rx Instructions .ROUTE .COMPLEX Qty: 90 RF: 3 Changed carvedilol 12.5 mg tablet 12.5 mg PO BID Qty: 240 RF: 3 Primary Care Provider: Eugene Andre Referrals: Eugene Andre MD [Primary Care Provider] - Remy Weiner MD [STAFF PHYSICIAN] - 3-5 Days (Call for appointment to be seen as soon as you are able to be) Disposition Disposition: Home, Self Care
[2021-04-02 23:39] LABS: Absolute Neutrophil Count 3.6 X10^3/uL (2.0-7.7); Basophil# 0.01 X10^3/uL; Basophil% 0.2 % (0-1); Eosinophil# 0.06 X10^3/uL; Eosinophils% 1.1 % (0-5); Hematocrit 37.1 % (40-54); Hemoglobin 12.4 g/dL (13.0-16.5); Lymphocyte % 22.9 % (19-41); Mean Corp Hgb Conc 33.4 g/dL (32-36); Mean Corpuscular Hgb 31.2 pg (27.0-32.0); Mean Corpuscular Volume 93.5 fL (80-94); Mean Platelet Vol. 9.7 fl (6.2-12.0); Monocyte% 12.3 % (0-10); NRBC Flagged by Analyzer 0 % (0-5); Neutrophil % 63.3 % (47-70); POSITIVE COUNT YES; Platelet Count 211 K/mm3 (150-450); RBC Distribution Width CV 13.3 % (11.6-14.6); RBC Distribution Width SD 45.3 fl (35.1-43.9); Red Blood Count 3.97 M/mm3 (4.6-6.2); White Blood Count 5.7 K/mm3 (4.4-11.0)
[2021-04-02 23:41] LABS: Differential Indicated SCAN CRITERIA MET
[2021-04-02 23:58] LABS: Anion Gap 9 (5-15); BUN 17 mg/dL (7-18); BUN/Creat Ratio 11.7 RATIO (10-20); Calcium,Total 8.2 mg/dL (8.5-10.1); Chloride 104 mmol/L (98-107); Creatinine, Serum 1.45 mg/dL (0.70-1.30); EST Glomerular Filtration Rate 50 mL/min (>60); Est Glom Filt Rate - Afr Amer 60 mL/min (>60); Estimated Creatinine Clearance 46.08 ml/min; Glucose 203 mg/dL (74-106); Potassium 3.5 mmol/L (3.5-5.1); Sodium Level 137 mmol/L (136-145); Troponin-I HS 15 pg/mL (3.0-78.0)
[2021-04-03 00:05] LABS: Differential Comment SCANNED; Platelet Estimate ADEQUATE (ADEQ)
[2021-04-03 00:37] VITALS: BP 103/62; BP 110/67; BP 122/41; PULSE 74; PULSE 77; PULSE 79
[2021-04-03 01:46] LABS: Troponin-I HS 15 pg/mL (3.0-78.0)
[2021-04-03 02:01] VITALS: BP 120/77; PULSE 77; RESP 16; O2SAT 95
--- NOTE | 2021-04-03 15:55 | CASEMGMT ---
SOURAV YADAV ED follow-up: SOURAV YADAV placed call to patient's telephone number listed on demographics and patient answered. SOURAV YADAV introduced self and role at [facility]. Patient reports feeling pretty good today and like it never happened. Denies dizziness. SOURAV YADAV discussed dosage change for Coreg as instructed by ER provider and patient voices understanding. Patient reports he has scheduled cardiology follow-up for April 18, 2021. Patient encouraged to keep appointment. Patient instructed to rise slowly when standing to prevent dizziness and falls. Patient replied, I've been doing that for years. Patient denies questions or concerns. SOURAV Coleman CM
== END 2021-04-03 02:08 | disposition home or self-care (01) ==
PROVIDERS: Emergency Provider Emergency Medicine; PCP Family Medicine; Visit Provider Emergency Medicine
DX: I11.0 Hypertensive heart disease with heart failure (principal); I42.8 Other cardiomyopathies; I50.9 Heart failure, unspecified; E11.9 Type 2 diabetes mellitus without complications; R11.0 Nausea; Z87.891 Personal history of nicotine dependence; R00.1 Bradycardia, unspecified; E78.00 Pure hypercholesterolemia, unspecified; I25.10 Atherosclerotic heart disease of native coronary artery without angina pectoris; Z79.82 Long term (current) use of aspirin; K21.9 Gastro-esophageal reflux disease without esophagitis; G47.33 Obstructive sleep apnea (adult) (pediatric); Z79.890 Hormone replacement therapy; Z79.84 Long term (current) use of oral hypoglycemic drugs; Z79.899 Other long term (current) drug therapy
CPT/HCPCS: 80048; 84484; 85025; 93005; 99285

== ENCOUNTER 2021-05-09 07:15 | Outpatient (CLI) | payer MEDICARE, SELFPAY ==
--- NOTE | 2021-05-09 09:36 | STRESSREP ---
Stress Test Report Date: 05-09-2021 Procedure: Pharmacologic stress nuclear imaging study Indications: Chest pain; abnormal ECG/right bundle branch block; CAD; cardiomyopathy; hyperlipidemia; hypertension Consent: Per the patient Procedure: The patient underwent pharmacologic (Regadenoson 0.4mg ) evaluation with a peak heart rate of 90 beats per minute (63%predicted maximal heart rate) and a peak blood pressure of 122/66 mmHg. The baseline ECG demonstrated sinus rhythm; right bundle branch block. The peak pharmacologic ECG demonstrated no obvious ECG changes. There was an occasional PVC pretest, during infusion, and recovery and a rare ventricular couplet during recovery. There was no complaint of chest discomfort during pharmacologic infusion or recovery. The examination was discontinued secondary to completion of protocol. Impression: 1. Pharmacologic (Regadenoson) evaluation 2. Peak pharmacologic ECG with continued right bundle branch block with no obvious ECG changes. 3. There was a rare PVC pretest, during infusion, and recovery and a rare ventricular couplet during recovery. 4. Nuclear images pending Myocardial perfusion imaging study: Technique: The patient was injected with 11.7 millicuries of technetium 99m Cardiolite and subsequently rest SPECT Cardiolite nuclear imaging was obtained in the horizontal long, vertical long, and short axis views. The patient underwent pharmacologic (Regadenoson) evaluation with a peak heart rate of 90 beats per minute (63% percent predicted maximal heart rate) and a peak blood pressure of 122/60 mmHg. The patient was injected with 36.0 millicuries of technetium 99m Cardiolite and subsequently stress SPECT Cardiolite nuclear imaging was obtained in the horizontal long, vertical long, and short axis views. A gated Cardiolite study at peak stress was obtained. Interpretation: Rest and stress SPECT Cardiolite nuclear imaging status post realignment, normalization, and attenuation correction demonstrate at rest the appearance of an area of diminished myocardial perfusion/tracer uptake in portions of the mid anterior segments which appears to improve/normalize following stress. There is end systolic thickening and brightening. There is diminished myocardial thickening and inward wall motion. The reported LVEF is 43%. Impression: 1. Rest and stress SPECT her nuclear imaging demonstrate myocardial perfusion changes at rest which appear to improve and/or normalize following stress appearing compatible with shifting soft tissue attenuation/artifact with no myocardial perfusion changes considered diagnostic for associated stress-induced myocardial ischemia. 2. The gated Cardiolite study reports an LVEF of 43%. This note was generated with [employer] software. It may contain incorrect words, spelling, and punctuation that were not noted in checking the note before signing.
== END 2021-05-09 23:59 | disposition home or self-care (01) ==
PROVIDERS: PCP Family Medicine; Referring Provider Nurse Practitioner Gerontology; Visit Provider Nurse Practitioner Gerontology
DX: I25.10 Atherosclerotic heart disease of native coronary artery without angina pectoris (principal)
CPT/HCPCS: 78452; 93017; A9500; A4216; J2785

== ENCOUNTER → 2021-08-22 | Outpatient (CLI) | payer MEDICARE, SELFPAY ==
[2021-08-22 12:41] LABS: AST(SGOT) 16 U/L (15-37); Alanine Aminotransfer ALT/SGPT 15 U/L (16-61); Albumin, Serum 3.6 g/dL (3.2-5.0); Alkaline Phosphatase 70 U/L (45-117); Bilirubin, Direct 0.25 mg/dL (0.00-0.30); Cholesterol 156 mg/dL (200); Globulin 3.9 g/dL (2.2-4.2); High Density Lipoprotein 51 mg/dL; Protein, Total 7.5 g/dL (6.4-8.2); Triglycerides 168 mg/dL; Very Low Density Lipoprotein 34 mg/dL (5-40)
== END | disposition home or self-care (01) ==
LOC: LAB 10:22
PROVIDERS: PCP Family Medicine; Visit Provider Internal Medicine Cardiovascular Disease
DX: E78.00 Pure hypercholesterolemia, unspecified (principal)
CPT/HCPCS: 36415; 80061; 80076

== ENCOUNTER → 2022-03-27 | Outpatient (CLI) | payer MEDICARE, SELFPAY ==
[2022-03-27 12:58] LABS: Vitamin B12 546 pg/mL (211-911)
[2022-03-27 13:11] LABS: ALB/GLOB Ratio 0.9 RATIO (0.9-2.4); AST(SGOT) 16 U/L (15-37); Alanine Aminotransfer ALT/SGPT 18 U/L (16-61); Albumin, Serum 3.6 g/dL (3.2-5.0); Alkaline Phosphatase 81 U/L (45-117); Anion Gap 9 (5-15); BUN 16 mg/dL (7-18); BUN/Creat Ratio 12.5 RATIO (10-20); Calcium,Total 9.5 mg/dL (8.5-10.1); Chloride 103 mmol/L (98-107); Cholesterol 159 mg/dL (200); Creatinine, Serum 1.28 mg/dL (0.70-1.30); EST Glomerular Filtration Rate 58 mL/min (>60); Est Glom Filt Rate - Afr Amer 70 mL/min (>60); Glucose 135 mg/dL (74-106); High Density Lipoprotein 50 mg/dL; Potassium 3.9 mmol/L (3.5-5.1); Protein, Total 7.6 g/dL (6.4-8.2); Sodium Level 140 mmol/L (136-145); Thyroid Stim Hormone (TSH) 2.08 uIU/mL (0.358-3.74); Triglycerides 188 mg/dL; Very Low Density Lipoprotein 38 mg/dL (5-40)
== END | disposition home or self-care (01) ==
LOC: MFPLAB 09:40
PROVIDERS: PCP Family Medicine; Referring Provider Family Medicine; Visit Provider Family Medicine
DX: E11.22 Type 2 diabetes mellitus with diabetic chronic kidney disease (principal); N18.9 Chronic kidney disease, unspecified
CPT/HCPCS: 36415; 80053; 80061; 82607; 84443

== ENCOUNTER 2022-04-22 00:25 | Emergency (ER) | payer MEDICARE, SELFPAY ==
[2022-04-22 00:26] VITALS: BP 118/62; PULSE 72; RESP 16; RESP 18; TEMP 35.8; O2SAT 99; BMI 26.5
--- NOTE | 2022-04-22 00:52 | EKG12_ITS ---
Test Reason : DYSRHYTHMIA Blood Pressure : / mmHG Vent. Rate : 077 BPM Atrial Rate : 077 BPM P-R Int : 208 ms QRS Dur : 114 ms QT Int : 454 ms P-R-T Axes : -27 104 -42 degrees QTc Int : 513 ms Sinus rhythm with occasional and consecutive Premature ventricular complexes and Premature atrial com plexes Rightward axis Low voltage QRS (Limb Leads) Incomplete right bundle branch block Prolonged QT Abnormal ECG Confirmed by FRANK MONGE, DESIREE ([id number]), news video editor SORIN CAMPOS ([id number]) on 04/23/2022 10:26:23 AM Referred By: FRANSISCA Confirmed By:DESIREE MARIE MD
--- NOTE | 2022-04-22 00:52 | RAD_ITS ---
STUDY: X-RAY CHEST REASON FOR EXAM: Male, 81 years old. Chest pain TECHNIQUE: Single AP portable view of the chest. COMPARISON: December 07, 2012 chest x-ray FINDINGS: The lungs are clear and expanded. There is no demonstrated pleural abnormality. Normal size heart. Normal mediastinum and manuel. Normal visualized pulmonary arteries. Normal visualized aortic arch and descending thoracic aorta. There are diffuse degenerative changes of the visualized thoracic spine. Normal visualized ribs, clavicles, and shoulders. There is no demonstrated abnormality of the visualized soft tissue structures of the upper abdomen. RAD/Chest 1 View (Portable) IMPRESSION: Degenerative changes, as described above. No demonstrated acute cardiopulmonary process. Electronically Signed: Silke Echevarria MD at 1:44 EST ,
--- NOTE | 2022-04-22 00:52 | CT_ITS ---
STUDY: CT BRAIN WITHOUT CONTRAST REASON FOR EXAM: Male, 81 years old. FALL RADIATION DOSAGE (If Supplied By Facility): CTDIvol = ( 44.99 ) mGy, DLP = ( 846.73 ) mGycm TECHNIQUE: Transaxial CT imaging of the brain was performed without administration of intravenous contrast material. Individualized dose optimization techniques were used for this CT. COMPARISON: No relevant priors. FINDINGS: Normal soft tissue structures. Normal calvarium. There is mild cerebral atrophy with widening of the extra-axial spaces and ventricular dilatation. There are areas of decreased attenuation within the white matter tracts of the supratentorial brain, consistent with microvascular disease changes. Normal basal ganglia and thalami. Normal brainstem. There is mild cerebellar atrophy. There is no intracranial hemorrhage. There are no findings of an acute ischemic infarction. Normal visualized paranasal sinuses. CT/Brain/Head without Contrast IMPRESSION: Atrophy no evidence of acute hemorrhage infarct or edema. Electronically Signed: Silke Echevarria MD at 1:42 EST Reading Location ID and State: [facility] / [place] Tel , Service support ,
--- NOTE | 2022-04-22 00:53 | EDS_ITS ---
HPI History of Present Illness Chief Complaint: Dizziness Informant: patient, spouse/S.O. and family Narrative Narrative: History is from patient, his , and his son. Patient was feeling in his normal state of health today. About 1030 tonight he took the garbage out. He evidently has a driveway on a hill. The garbage can got away from him. It pulled him down to the ground and then the lid of the garbage can hit his head. He did receive a small laceration. His cleaned this up. He then went to bed. He got up from bed to go to the bathroom. He felt overall weak and fell to the ground. He did not pass completely out. He did not get a spinning sensation. He had no focal weakness. He had no palpitations fast or slow heartbeat. He never had chest pain or shortness of breath. He did scrape his shoulder and knee on the right side. His states that he falls all the time. He has weakness all the time. He does not pickling grader his legs when he walks. This has been going on for a while. Neither the patient or anyone in the family has noticed any sudden change. However, when EMS showed up he had a blood pressure that was low at about 70 systolic. No reported change in medications. He is on multiple meds for blood pressure. [facility] Medical History (Updated 04/22/22 @ 04:[address] Diogenes Francis MD) Atherosclerotic heart disease of [place] coronary artery without angina pectoris Essential hypertension GERD (gastroesophageal reflux disease) Nonischemic cardiomyopathy MICHELLE (obstructive sleep apnea) Pure hypercholesterolemia RBBB (right bundle branch block) Type 2 diabetes mellitus Home Medications aspirin 81 mg chewable tablet 81 mg PO QHS 12/07/12 [History Last Taken Unknown] levothyroxine 50 mcg tablet 50 mcg PO QHS 12/07/12 [History Last Taken Unknown] omeprazole 20 mg capsule,delayed release 20 mg PO DAILY 12/07/12 [History Last Taken Unknown] simvastatin 40 mg tablet 40 mg PO QHS 12/07/12 [History Last Taken Unknown] fexofenadine 180 mg tablet (Jalyn Allergy) 180 mg PO DAILY PRN Allergy Symptoms 12/21/18 [History Last Taken Unknown] cholecalciferol (vitamin D3) 25 mcg (1,000 unit) capsule 1,000 unit PO DAILY 12/23/18 [History Last Taken Unknown] metformin 500 mg tablet,extended release 24 hr 1,000 mg PO BID 12/23/18 [History Last Taken Unknown] omega-3 fatty acids 1,000 mg capsule (Fish Oil Concentrate) 1,000 mg PO DAILY 12/23/18 [History Last Taken Unknown] cyanocobalamin (vitamin B-12) 2,500 mcg tablet 1,000 mcg PO DAILY 03/19/20 [History Last Taken Unknown] spironolactone 25 mg tablet 25 mg PO DAILY #90 tabs 04/18/21 [Rx Last Taken Unknown] losartan 25 mg tablet See Rx Instructions .Route .COMPLEX #90 tabs 09/27/21 [Rx Last Taken Unknown] carvedilol 12.5 mg tablet 12.5 mg PO BID #180 tabs 02/24/22 [Rx Last Taken Unknown] Allergy/AdvReac Type Severity Reaction Status Date / Time lidocaine AdvReac Hives Verified 02/24/22 08:53 Penicillins AdvReac Hives Verified 02/24/22 08:53 Sulfa (Sulfonamide AdvReac Hives Verified 02/24/22 08:53 Antibiotics) Family History Mother Colon cancer Surgical History History of right and left heart catheterization (LHC) (~04/20/09) Social History Smoking Status: Former smoker alcohol intake: current details: rare substance use type: does not use caffeine: Yes Type: coffee Number of servings: 2 ROS ROS ED Constitutional Constitutional ED: Denies chills, fever(s), subjective or sweats Eyes Eyes: Denies change in vision ENT ENT ED: Denies rhinorrhea or sore throat Cardiovascular Cardiovascular: Denies chest pain, palpitations or racing heartbeat Respiratory/Chest Respiratory/Chest: Denies cough or dyspnea Gastrointestinal Gastrointestinal: Reports other Details: Denies black or bloody stools. ; Denies abdominal pain, diarrhea, melena, nausea or vomiting Genitourinary Genitourinary ED: Denies dysuria Musculoskeletal Musculoskeletal: Denies back pain or neck pain Integumentary Reports Abrasions Neurologic Neurologic: Denies headache(s) Endocrine Endocrinology: Denies polydipsia or polyuria Hematologic/Lymphatic Hematologic/Lymphatic: Denies easy bleeding or easy bruising Allergic/Immunologic Allergic/Immunologic ED: Denies urticaria EXAM Physical Exam Narrative Exam Narrative: Patient is lying in bed. He is awake alert he is a reasonable informant for his past history. He is a good informant for all the events that happened tonight. HEENT shows a cross shaped small laceration on the left upper forehead. This happened when the garbage can hit him. No active bleeding. No step-off. No other signs of trauma. Eyes show normal pupillary function and range of motion Neck shows no tenderness or pain with motion Chest is clear to auscultation. Saturations are 99% to 100% on room air showing no hypoxia. No rib tenderness. No subcu air. Heart is regular with a rate about 70. Occasional PVCs on the monitor peripheral pulses are equal x4 Abdomen is soft nondistended nontender. I feel no mass hear no bruit. Extremities show a little bit abrasion on the shoulder. There is a small abrasion near the fibular head on the right but there is no tenderness in these areas. Neurologically he is awake alert appropriate with no focal weakness or numbness. He does seem globally a little bit weak but evidently this is somewhat near his baseline or is his baseline. Const Vital Signs: 04/22/22 00:26 04/22/22 00:26 04/22/22 02:48 Temperature 96.4 F L 96.4 F L Temperature Source Temporal Temporal Pulse Rate 72 72 79 Respiratory Rate 16 18 18 Blood Pressure 118/62 118/62 95/60 Blood Pressure Mean 80 80 71 Pulse Ox 99 99 96 Oxygen Delivery Method Room Air Room Air Room Air 04/22/22 04:29 04/22/22 05:15 Temperature Temperature Source Pulse Rate 86 Respiratory Rate 16 Blood Pressure 118/78 118/70 Blood Pressure Mean 91 Pulse Ox 97 Oxygen Delivery Method Room Air MDM MDM MDM Narrative Medical decision making narrative: My independent interpretation of the patient's CT shows no acute intracranial process. Final reading shows atrophy but no evidence of acute hemorrhage infarct or edema. My independent interpretation of the patient's single view chest x-ray shows no pneumothorax or acute process. Final reading is similar. Blood work shows normal CBC including white count hemoglobin and platelets. Electrolytes are normal. Mild elevation of creatinine at 1.5. Glucose is up at 207. His TSH is a little high but this is not likely the cause of his symptoms and can be adjusted as an outpatient. Patient was given IV fluids here with the mild dehydration. He is gotten up and walk to the bathroom. He is actually done well. He states he feels good. He did not have a parkinsonian gait. He actually walks pretty well. He wants to go home and his does 2. They feel he is at baseline. This patient actually did not have 2 syncopal episodes. He had a mechanical fall. He then got dizzy and fell a second time but never lost consciousness. He states he does fall like this very frequently so this was really not out of the ordinary for him. Family was concerned because he had a cut on his head from the first fall. The small laceration on his scalp does not open up. There is really nothing that can be sutured. It is just into the epidermis. Patient really does not want it sutured and I think that is reasonable. Lab Data Attestation: I reviewed the patient's lab results. Labs: Laboratory Results - last 24 hr 04/22/22 04/22/22 00:39 00:39 WBC 6.9 RBC 4.44 L Hgb 13.9 Hct 41.6 MCV 93.7 MCH 31.3 MCHC 33.4 RDW Std Deviation 45.0 H RDW Coeff of Barbara 13.2 Plt Count 250 MPV 10.0 Immature Gran % (Auto) 0.400 Neut % (Auto) 69.2 Lymph % (Auto) 21.3 Gilchrist % (Auto) 7.7 Eos % (Auto) 1.0 Baso % (Auto) 0.4 Absolute Neuts (auto) 4.8 Absolute Lymphs (auto) 1.47 Nucleated RBC % 0 Sodium 136 Potassium 4.4 Chloride 103 Carbon Dioxide 25.0 Anion Gap 8 BUN 19 H Creatinine 1.51 H Estim Creat Clear Calc 43.54 Est GFR (MDRD) Af Amer 58 L Est GFR (MDRD) Non-Af 48 L BUN/Creatinine Ratio 12.6 Glucose 207 H Calcium 9.2 Magnesium 1.7 Troponin I High Sens 16 TSH 7.77 H Radiography Diagnostic Testing: Clinical Impression(s) from Imaging Studies Brain CT 04/22/22 00:52 IMPRESSION: Atrophy no evidence of acute hemorrhage infarct or edema. Electronically Signed: Silke Echevarria MD at 1:42 EST , Chest X-Ray 04/22/22 00:52 IMPRESSION: Degenerative changes, as described above. No demonstrated acute cardiopulmonary process. Electronically Signed: Silke Echevarria MD at 1:44 EST , EKG Initial EKG: Comments: My independent interpretation of the patient's EKG done for syncope shows a sinus rhythm with first-degree block and occasional PACs and PVCs. Slight right bundle branch block. Overall rate is 77. CA interval QRS duration and QTc are all a little bit long Discharge Plan Triage Chief Complaint: Dizziness ED Provider: Diogenes Francis Dx/Rx/DC Orders Clinical Impression: Near syncope, Laceration of scalp, Mild dehydration Instructions: ED Fainting, Uncertain Cause Prescriptions: No Action omega-3 fatty acids [Fish Oil Concentrate] 1,000 mg capsule 1,000 mg PO DAILY cholecalciferol (vitamin D3) 1,000 unit capsule 1,000 unit PO DAILY cyanocobalamin (vitamin B-12) 2,500 mcg tablet 1,000 mcg PO DAILY fexofenadine [Jalyn Allergy] 180 mg tablet 180 mg PO DAILY PRN (Reason: Allergy Symptoms) spironolactone 25 mg tablet 25 mg PO DAILY Qty: 90 3RF carvedilol 12.5 mg tablet 12.5 mg PO BID Qty: 180 3RF simvastatin 40 MG tablet 40 mg PO QHS levothyroxine 50 MCG tablet 50 mcg PO QHS omeprazole 20 MG capsule 20 mg PO DAILY aspirin 81 MG tablet,chewable 81 mg PO QHS metformin 500 mg tablet extended release 24 hr 1,000 mg PO BID losartan 25 mg tablet See Rx Instructions .ROUTE .COMPLEX Qty: 90 3RF Dose Instruction: TAKE 1 TABLET DAILY Rx Instructions: TAKE 1 TABLET DAILY Primary Care Provider: Eugene Andre Referrals: Eugene Andre MD [Primary Care Provider] - 1-2 Days if not improving Disposition Disposition: Home, Self Care Discharge Date/Time: 04/22/22 05:16
[2022-04-22] MEDS: 0.9% Normal Saline 1,000 ML 1000 ML IV (00:58)
[2022-04-22 01:05] LABS: Absolute Lymphocyte Count 1.47 X10^3/uL (0.83-4.51); Absolute Neutrophil Count 4.8 X10^3/uL (2.0-7.7); Basophil# 0.03 X10^3/uL; Basophil% 0.4 % (0-1); Eosinophil# 0.07 X10^3/uL; Hematocrit 41.6 % (40-54); Hemoglobin 13.9 g/dL (13.0-16.5); Lymphocyte # 1.47 X10^3/ul (0.83-4.51); Lymphocyte % 21.3 % (19-41); Mean Corp Hgb Conc 33.4 g/dL (32-36); Mean Corpuscular Hgb 31.3 pg (27.0-32.0); Mean Corpuscular Volume 93.7 fL (80-94); Monocyte# 0.53 X10^3/uL; Monocyte% 7.7 % (0-10); NRBC Flagged by Analyzer 0 % (0-5); Neutrophil # 4.78 X10^3/uL (2.7-7.7); Neutrophil % 69.2 % (47-70); Platelet Count 250 K/mm3 (150-450); RBC Distribution Width CV 13.2 % (11.6-14.6); Red Blood Count 4.44 M/mm3 (4.6-6.2); White Blood Count 6.9 K/mm3 (4.4-11.0)
[2022-04-22] MEDS: Aspirin 81 MG TAB.CHEW 324 MG PO (01:17)
[2022-04-22 01:40] LABS: Anion Gap 8 (5-15); BUN 19 mg/dL (7-18); BUN/Creat Ratio 12.6 RATIO (10-20); Calcium,Total 9.2 mg/dL (8.5-10.1); Chloride 103 mmol/L (98-107); Creatinine, Serum 1.51 mg/dL (0.70-1.30); EST Glomerular Filtration Rate 48 mL/min (>60); Est Glom Filt Rate - Afr Amer 58 mL/min (>60); Estimated Creatinine Clearance 43.54 ml/min; Glucose 207 mg/dL (74-106); Magnesium 1.7 mg/dL (1.6-2.6); Potassium 4.4 mmol/L (3.5-5.1); Sodium Level 136 mmol/L (136-145); Thyroid Stim Hormone (TSH) 7.77 uIU/mL (0.358-3.74); Troponin-I HS (w/2H Reflex) 16 pg/mL (3.0-78.0)
[2022-04-22 02:48] VITALS: BP 95/60; PULSE 79; RESP 18; O2SAT 96
[2022-04-22 03:02] LABS: Reflex Troponin-HS? (from REC) Y
[2022-04-22 04:29] VITALS: BP 118/78; PULSE 86; RESP 16; O2SAT 97
[2022-04-22 05:15] VITALS: BP 118/70
[2022-04-25 11:35] LABS: T4 Free Direct 1.16 ng/dL (0.76-1.46)
== END 2022-04-22 05:16 | disposition home or self-care (01) ==
PROVIDERS: Emergency Provider Emergency Medicine; PCP Family Medicine; Visit Provider Emergency Medicine
DX: R55 Syncope and collapse (principal); E11.9 Type 2 diabetes mellitus without complications; E86.0 Dehydration; E78.00 Pure hypercholesterolemia, unspecified; I10 Essential (primary) hypertension; Z87.891 Personal history of nicotine dependence; W19.XXXA Unspecified fall, initial encounter; I25.10 Atherosclerotic heart disease of native coronary artery without angina pectoris; S01.01XA Laceration without foreign body of scalp, initial encounter
CPT/HCPCS: 70450; 71045; 80048; 83735; 84439; 84443; 84484; 85025; 93005; 96360; 99285; A4216

== ENCOUNTER → 2022-05-07 | Outpatient (CLI) | payer MEDICARE, SELFPAY ==
--- NOTE | 2022-05-07 15:11 | RAD_ITS ---
EXAM: XR LUMBOSACRAL SPINE COMPLETE WITH FLEXION/EXTENSION, 6 OR MORE VIEWS CLINICAL INDICATION: leg weakness TECHNIQUE: Lateral, frontal, oblique and lateral flexion/extension views of the lumbar spine and sacrum. This report was created using eelusion report [employer] technology. COMPARISON: None. FINDINGS: VERTEBRAE: Lumbar alignment is normal with no fracture or subluxation. No movement on flexion or extension views. Disc spaces and vertebral body heights are well-maintained. Degenerative spondylosis at L1-2. No spondylolysis or listhesis. DISC SPACES: Marked facet arthrosis at L5-S1. VASCULATURE: Atherosclerotic vascular calcification. GASTROINTESTINAL TRACT: Included bowel gas pattern is non-obstructive. AP, lateral, oblique, flexion and extension views submitted. RAD/L/S Spine w Bend Min 6 Vw IMPRESSION: No fracture or subluxation. Electronically Signed: Kyung Hickey MD at 23:58 EDT Reading Location ID and State: [id number] / Tel , Service support ,
== END | disposition home or self-care (01) ==
LOC: MTRAD 15:09
PROVIDERS: PCP Family Medicine; Visit Provider Family Medicine
DX: R29.898 Other symptoms and signs involving the musculoskeletal system (principal)
CPT/HCPCS: 72114

== ENCOUNTER → 2022-06-12 | Outpatient (CLI) | payer MEDICARE, SELFPAY ==
[2022-06-12 15:18] LABS: Hematocrit 41.5 % (40-54); Hemoglobin 13.9 g/dL (13.0-16.5); Mean Corp Hgb Conc 33.5 g/dL (32-36); Mean Corpuscular Hgb 31.5 pg (27.0-32.0); Mean Corpuscular Volume 94.1 fL (80-94); Mean Platelet Vol. 10.2 fl (6.2-12.0); Platelet Count 255 K/mm3 (150-450); RBC Distribution Width CV 13.2 % (11.6-14.6); RBC Distribution Width SD 45.1 fl (35.1-43.9); Red Blood Count 4.41 M/mm3 (4.6-6.2); White Blood Count 6.8 K/mm3 (4.4-11.0)
[2022-06-12 15:50] LABS: Anion Gap 6 (5-15); BUN 24 mg/dL (7-18); BUN/Creat Ratio 18.9 RATIO (10-20); Chloride 103 mmol/L (98-107); Creatinine, Serum 1.27 mg/dL (0.70-1.30); EST Glomerular Filtration Rate 58 mL/min (>60); Est Glom Filt Rate - Afr Amer 70 mL/min (>60); Glucose 131 mg/dL (74-106); Potassium 4.2 mmol/L (3.5-5.1); Sodium Level 137 mmol/L (136-145); T4 Free Direct 1.31 ng/dL (0.76-1.46); Thyroid Stim Hormone (TSH) 1.79 uIU/mL (0.358-3.74)
== END | disposition home or self-care (01) ==
LOC: MFPLAB 12:04
PROVIDERS: PCP Family Medicine; Visit Provider Family Medicine
DX: N18.30 Chronic kidney disease, stage 3 unspecified (principal); R79.89 Other specified abnormal findings of blood chemistry; E03.9 Hypothyroidism, unspecified
CPT/HCPCS: 36415; 80048; 84439; 84443; 85027

== ENCOUNTER 2022-09-15 14:00 | Outpatient (RCR) | payer MEDICARE, SELFPAY ==
--- NOTE | 2022-06-17 11:24 | HP.PTEVAL ---
Patient's Visit Information CHRISTINA OWUSU is a 82 year old M referred to Physical Therapy by Dr. Eugene Andre MD with a diagnosis of falls, Parkinsons?. Date of Evaluation: 06/17/22 Physical Therapist: Arturo Kent, GRISELDAT, OCS, CSCS - Visit Plan Frequency: 2x /Week Duration: 4-6 Weeks Plan: 2x/week for 4-6 weeks, please teach HS and quad stretching for HEP, please teach general LE and core strengthening patient can eventually do at home as safety allows. Please ensure patient gets rollator and I in use and set up.Please teach weight shift ex. Reviewed with patient and today improtance of doing the things he can on his own despite being a challenge(legs into bed, out of chair), also the benefits of strength and stretch ex, also the need to get a rollator whcih i gave him a picture of and a way to get it at [employer] . He will pursue prescription from Dr. Andre and take to Nasim Francis. Also reviewed balance safety HO given to patient. - Subjective Im so afraid of falling. present and talking and he falls down alot, once every 3 months. Fallen 4 x, one time due to dehydration, other times he trips on his short steps shuffling feet. She helps him get dressed and put shoes on. Dresses self otherwise. Lives with adn two grandkids. No steps at home, 4 to enter with railing and he can do them. Scooter electric at home but does not use, has cane that he doesn't use but no walker. Sleep is OK.Needs help to get out of chair and legs into bed at home.No spinning, No numbness in legs or neuropathy but has DM. 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 Spends day doing nothing watching TV, no regular ex. - Objective Needs help from to exit chair. Walks slow with short shuffly steps until cued. Ran out of dopamine 4 days ago. Exits another chair with UE with great effort I. Slow transfer to table lying needing extra time and effort for LE into. sits up slow but and Min A for intiial lift of upper body off bed. reflexes 0/3 patella and achilles. Sensation LE WNL to gross light touch. coordination to reciprocal tap is slow UE and LE. Strength hips:3, knees 3+, ankles 4-. Flexibility is very tight in HS, ITB and quads and psoas. LB AROM funcitonal but max limited in extension and mod in fexion. core strength 3- to 3 abs and extensors. Pt is safer and does much better with rolling walker which I am recommending and give pics of today to get on own with instruction how. - Balance/Special Test Scores Functional Gait Assessment Score: 19 % Disability: 36.6700 Lower Extremity Functional Score: 10 30 Second Chair Rise Test Seconds: 2 - Goals Goal 1:: 5 on 30 second sit to stand test Goal Time Frame: 4-6 Weeks Goal 2:: I appropriate HEP to limit fall risk(strength adn stretch and use of rolling walker) Goal Time Frame: 4-6 Weeks Goal 3:: FGA score to improve balance Goal Time Frame: 4-6 Weeks Goal 4:: Pt and feel 50% better in overall mobility Goal Time Frame: 4-6 Weeks Goal 5:: 30 score on LEFS Goal Time Frame: 4-6 Weeks - Rehabilitation Potential Physical Therapy Diagnosis: frequent falls, unsteady with weight shift and sedentary causing mobility issues. Rehabilitation Potential: Fair - Anticipated Interventions Patient/Client Instruction: Educate patient on: Condition, Plan of Care For the Purpose of:: To improve nutrient delivery to tissue, To increase oxygenation perfusion, To improve muscle performance and motor function, To increase tolerance to activity/condition/position, To improve gait and locomotor functions, To improve health of tissue Therapeutic Exercise to Include: Strength training, Balance training, Postural training, Flexibilty training, Passive ROM, Active ROM For the Purpose of:: To improve nutrient delivery to tissue, To increase oxygenation perfusion, To improve muscle performance and motor function, To increase tolerance to activity/condition/position Thank you for the opportunity to evaluate your patient. For Medicare and Medicare HMO plans, please review the plan of care and approve it. It will need to be FAXED BACK to us at [phone] for Medicare purposes. For Medicare only, by signing this I certify the plan of care. Please let me know if there are questions or concerns regarding this plan of care. Physician Signature: Date:
--- NOTE | 2022-09-15 15:23 | HP.PTDCSUM ---
Discharge Summary D/C summary: It has been my pleasure to treat CHRISTINA OWUSU referred by Dr. Eugene Andre MD, with the diagnosis of falls, Parkinsons? for a total of 8 visit(s). Discharge Date: 09/15/22 Please see the following information for a summary of their discharge status. Subjective Subjective: adn patient do not know why it has been so long since he has been rechecked. Not sure why they went 3 weeks without having PT at one point. Doing home exercises at kitchen sink. Getting stronger. Enjoys exercises. Sleeping well at home Activities at home are pretty normal, uses rollator to get around outside at home, Holds on to iyer inside. No pain.\ Ready to be done with PT. To doctor in September. agrees 60% better. Overall Improvement % Improvement: 60 Objective Objective/Function: FGA is improving bu tlikely will be a limit to that with his PD symptoms. TUG is improving but still limited by lack of FW weight shift. Overall feeling better and moving better adn will continue to do as well as he is compliant with HEP. Goals Goal 1:: 5 on 30 second sit to stand test Goal Progress: Goal Met Goal 2:: I appropriate HEP to limit fall risk(strength adn stretch and use of rolling walker) Goal Progress: Goal Met Goal 3:: FGA score to improve balance Goal Progress: Goal 4:: Pt and feel 50% better in overall mobility Goal Progress: Goal Met Goal 5:: 30 score on LEFS Goal Progress: Goal Met Plan Plan: d/c D/C Information d/c sentence: If there are questions or concerns regarding this patient's physical therapy, please feel free to call me at [phone]. Thank you for the referral of this patient. Sincerely, Arturo Kent, DPT, OCS, CSCS Balance/Gait/Functional tests Balance/Special Test Scores Functional Gait Assessment Score: 21 % Disability: 30.0000 Lower Extremity Functional Score: 45 TUG Test Time Seconds: 5 Tug Test: <10 sec.=free mobile 30 Second Chair Rise Test Seconds: 2
== END 2022-09-15 19:00 | disposition home or self-care (01) ==
LOC: PT 14:00
PROVIDERS: PCP Family Medicine; Referring Provider Family Medicine; Visit Provider Family Medicine
DX: G20 Parkinson's disease (principal); R29.6 Repeated falls
CPT/HCPCS: 97110; 97162; 97164; 97530

== ENCOUNTER 2022-12-23 14:24 | Observation (INO) | payer MEDICARE, SELFPAY ==
[2022-12-23 14:27] VITALS: BP 131/75; PULSE 82; RESP 16; TEMP 36.7; O2SAT 95; BMI 25.8
--- NOTE | 2022-12-23 14:42 | EKG12_ITS ---
Test Reason : Blood Pressure : / mmHG Vent. Rate : 093 BPM Atrial Rate : 093 BPM P-R Int : 218 ms QRS Dur : 106 ms QT Int : 400 ms P-R-T Axes : 032 127 -10 degrees QTc Int : 497 ms Sinus rhythm with 1st degree A-V block with occasional Premature ventricular complexes and Premature atrial complexes Right axis deviation Incomplete right bundle branch block Right ventricular hypertrophy with repolarization abnormality Abnormal QRS-T angle, consider primary T wave abnormality Prolonged QT Abnormal ECG Confirmed by CLARI MONGE, MORA ([id number]), editor farm journal ZEINA GARCIA ([id number]) on 12/29/2022 6:56:44 AM Referred By: Confirmed By:VAISHALI MONTAGUE MD
--- NOTE | 2022-12-23 14:42 | RAD_ITS ---
STUDY: X-RAY CHEST REASON FOR EXAM: Male, 82 years old. weakness TECHNIQUE: AP portable COMPARISON: April 22, 2022 FINDINGS: The lungs are clear and expanded. There is no demonstrated pleural abnormality. Normal size heart. Normal mediastinum and manuel. Normal visualized pulmonary arteries. Normal visualized aortic arch and descending thoracic aorta. Degenerative changes changes of the dorsal spine. Normal visualized ribs, clavicles, and shoulders. There is no demonstrated abnormality of the visualized soft tissue structures of the upper abdomen. RAD/Chest 1 View (Portable) IMPRESSION: No acute cardiopulmonary pathology Electronically Signed: Gabino Beach MD at 16:39 EST ,
--- NOTE | 2022-12-23 14:48 | EX.ED.DYSGE1 ---
HPI <NAKITA Perez - Last Filed: 12/23/22 17:26> History of Present Illness Chief Complaint: Weakness Narrative Narrative: 82-year-old male with past medical history of HTN, HLD, DM2, Parkinson's disease presents with generalized weakness. His states he woke up at 3 AM and sat on the edge of the bed because he had to pee. She normally helps him stand and then he can walk unassisted but he could not get up. He laid down on the side of the bed with his legs hanging off the edge until the morning when she called her brother to come help him up. Even though he could stand with assistance he could not walk. He denies pain or injury. His primary care doctor is prescribing his Parkinson's medications. He has no recent fever or illness. He has normal p.o. intake and no bladder or bowel changes. [facility] <NAKITA Perez - Last Filed: 12/23/22 17:26> [facility] Medical History Atherosclerotic heart disease of [place] coronary artery without angina pectoris Essential hypertension GERD (gastroesophageal reflux disease) Nonischemic cardiomyopathy MICHELLE (obstructive sleep apnea) Pure hypercholesterolemia RBBB (right bundle branch block) Type 2 diabetes mellitus Home Medications aspirin 81 mg chewable tablet 81 mg PO QHS 12/07/12 [History Last Taken 12/22/22] omeprazole 20 mg capsule,delayed release 20 mg PO DAILY 12/07/12 [History Last Taken 12/22/22] simvastatin 40 mg tablet 40 mg PO QHS CHOLESTEROL 12/07/12 [History Last Taken 12/22/22] fexofenadine 180 mg tablet (Jalyn Allergy) 180 mg PO DAILY Allergy Symptoms 12/21/18 [History Last Taken 12/22/22] cholecalciferol (vitamin D3) 25 mcg (1,000 unit) capsule 1,000 unit PO DAILY 12/23/18 [History Last Taken 12/22/22] omega-3 fatty acids 1,000 mg capsule (Fish Oil Concentrate) 1,000 mg PO QHS SUPPLEMENT 12/23/18 [History Last Taken 12/22/22] cyanocobalamin (vitamin B-12) 2,500 mcg tablet 1,000 mcg PO DAILY 02/01/21 [History Last Taken 12/22/22] carvedilol 12.5 mg tablet 12.5 mg PO BID #180 tabs 02/24/22 [Rx Last Taken 12/22/22] levothyroxine 50 mcg tablet 50 mcg PO QHS #90 tabs 08/01/22 [Rx Last Taken 12/22/22] carbidopa ER 25 mg-levodopa 100 mg tablet,extended release 1 tab PO TID PARKINSONS 12/23/22 [History Last Taken 12/22/22] losartan 25 mg tablet 25 mg PO QHS BLOOD PRESSURE 12/23/22 [History Last Taken 12/22/22] metformin 1,000 mg tablet 1,000 mg PO BID DIABETES 12/23/22 [History Last Taken 12/22/22] Allergy/AdvReac Type Severity Reaction Status Date / Time lidocaine AdvReac Hives Verified 02/24/22 08:53 Penicillins AdvReac Hives Verified 02/24/22 08:53 Sulfa (Sulfonamide AdvReac Hives Verified 02/24/22 08:53 Antibiotics) Family History Mother Colon cancer Surgical History History of right and left heart catheterization (LHC) (~04/20/09) Social History Smoking Status: Former smoker alcohol intake: current details: rare substance use type: does not use caffeine: Yes Type: coffee Number of servings: 2 ROS <NAKITA Perez - Last Filed: 12/23/22 17:26> ROS ED ROS Narrative Constitutional: Negative for fever, chills, malaise. CVS: Negative for palpitations, chest pain, syncope. Respiratory: Negative for shortness of breath, cough. GI: Negative for abdominal pain, nausea, vomiting, diarrhea, melena, hematochezia. : Negative for dysuria. Neuro: Negative for headache, motor/sensory dysfunction. EXAM <NAKITA Perez - Last Filed: 12/23/22 17:26> Physical Exam Narrative Exam Narrative: CONST: Patient sitting in no acute distress. EYES: Normal inspection. NECK: Normal inspection. RESP: No respiratory distress, CTAB. CVS: Regular rate and rhythm, no murmur, no gallop. ABD: Soft and nontender, no guarding or rebound, nondistended. SKIN: Color normal, no rash, warm, dry, intact. EXTREMITIES: Moving all extremities, 5/5 aircraft restorer strength and DF/PF. Upper extremities have cogwheel rigidity. No tremor. NEURO: Alert to self, place, age. States year is 1920. PSYCH: Normal affect. Const Vital Signs: 12/23/22 14:27 12/23/22 15:01 Temperature 98.0 F Temperature Source Temporal Pulse Rate 82 Respiratory Rate 16 Respiratory Pattern Normal Blood Pressure 131/75 H Blood Pressure Mean 93 Pulse Ox 95 Oxygen Delivery Method Room Air <Dr. French Zelaya DO - Last Filed: 12/23/22 17:54> Physical Exam Const Vital Signs: 12/23/22 14:27 12/23/22 15:01 Temperature 98.0 F Temperature Source Temporal Pulse Rate 82 Respiratory Rate 16 Respiratory Pattern Normal Blood Pressure 131/75 H Blood Pressure Mean 93 Pulse Ox 95 Oxygen Delivery Method Room Air MDM <NAKITA Perez - Last Filed: 12/23/22 17:26> [facility] Narrative Medical decision making narrative: History gathered from: Patient and spouse Patient presents with generalized weakness. He could not get out of bed or ambulate today. No other specific complaints. He is awake alert with stable vital signs. His exam overall is unremarkable?he is alert and oriented x3 which states is baseline. He is moving all extremities and has no focal neurological deficits. Labs show white count of 12.7 with normal hemoglobin and platelets. Creatinine is 1.47 with normal electrolytes. This appears within his normal range. Glucose is 199 with normal CO2 and anion gap. Urinalysis is negative for infection. Patient is too weak to ambulate and will need admitted for further work-up and placement. Case was discussed with the hospitalist who also requested a respiratory viral panel which was added. Lab Data Attestation: I reviewed the patient's lab results. Labs: Laboratory Results - last 24 hr 12/23/22 12/23/22 14:50 16:45 WBC 12.7 H RBC 4.54 L Hgb 13.9 Hct 41.7 MCV 91.9 MCH 30.6 MCHC 33.3 RDW Std Deviation 44.7 H RDW Coeff of Barbara 13.4 Plt Count 225 MPV 9.5 Immature Gran % (Auto) 0.600 Neut % (Auto) 85.1 H Lymph % (Auto) 4.8 L [place] % (Auto) 9.3 Eos % (Auto) 0.0 Baso % (Auto) 0.2 Absolute Neuts (auto) 10.8 H Absolute Lymphs (auto) 0.61 L Nucleated RBC % 0 Sodium 136 Potassium 4.0 Chloride 100 Carbon Dioxide 28.0 Anion Gap 8 BUN 18 Creatinine 1.47 H Estim Creat Clear Calc 45.29 Est GFR (MDRD) Af Amer 59 L Est GFR (MDRD) Non-Af 49 L BUN/Creatinine Ratio 12.2 Glucose 199 H Calcium 9.3 Urine Color Yellow Urine Clarity Clear Urine pH 5.0 Ur Specific [place] 1.020 Urine Protein 30 H Urine Glucose (UA) 50 H Urine Ketones 5 H Urine Occult Blood 10 H Urine Nitrite Negative Urine Bilirubin Negative Urine Urobilinogen Normal Ur Leukocyte Esterase 25 H Urine RBC 0 SEEN Urine WBC 0-5 SEEN Ur Squamous Epith Cells 0 SEEN Urine Bacteria 0 SEEN Urine Mucus 0 SEEN Radiography Diagnostic Testing: Clinical Impression(s) from Imaging Studies Chest X-Ray 12/23/22 14:42 IMPRESSION: No acute cardiopulmonary pathology Electronically Signed: Gabino Beach MD at 16:39 EST Reading Location ID and State: [address] [place] [address] Tel , Service support , ED attending interpretation of 1- view chest x-ray shows normal heart size, no acute infiltrate. EKG Initial EKG: Attestation: I personally reviewed and interpreted this EKG as follows: Interpretation: Sinus Rhythm and AV Block Comments: Sinus rhythm first-degree AV block with occasional PVCs Right axis deviation Incomplete RBBB Prior EKG tracings: available for review Prior: Unchanged <Dr. French Zelaya, DO - Last Filed: 12/23/22 17:54> [facility] Narrative Medical decision making narrative: History gathered from: Patient and spouse Patient presents with generalized weakness. He could not get out of bed or ambulate today. No other specific complaints. He is awake alert with stable vital signs. His exam overall is unremarkable?he is alert and oriented x3 which states is baseline. He is moving all extremities and has no focal neurological deficits. Labs show white count of 12.7 with normal hemoglobin and platelets. Creatinine is 1.47 with normal electrolytes. This appears within his normal range. Glucose is 199 with normal CO2 and anion gap. Urinalysis is negative for infection. Patient is too weak to ambulate and will need admitted for further work-up and placement. Case was discussed with the hospitalist who also requested a respiratory viral panel which was added. This patient was seen with a PA/SHEET METAL DUCT INSTALLER APPRENTICE Individually assessed they patient including history and physical. I have reviewed everything on the chart that is available and agree with the documentation provided by the PA/SHEET METAL DUCT INSTALLER APPRENTICE including discussion about the assessment, treatment plan, discussion, and return precautions. 82-year-old male with history of Parkinson's presenting generally weak and unable to ambulate. His is able to get him up under her strength as well. Exam is unremarkable. Patient has no focal neurologic deficits. Vital signs are stable he is afebrile. Blood work-up shows leukocytosis 12.7. Hemoglobin 13.9. Platelets are normal at 225. Creatinine is elevated today at 1.47 and he was given a liter of normal saline. Urinalysis negative for infection. Chest x-ray my interpretation shows no acute process. Radiologist services and agrees. EKG sinus rhythm with first-degree AV block without sign of ischemic change. Since patient is unable to ambulate he will be admitted to hospital further monitoring. We will order a COVID and lateral panel which is pending and will be reviewed on the floor. Impression: 1 weakness 2. Leukocytosis 3. Dehydration Lab Data Labs: Laboratory Results - last 24 hr 12/23/22 12/23/22 14:50 16:45 WBC 12.7 H RBC 4.54 L Hgb 13.9 Hct 41.7 MCV 91.9 MCH 30.6 MCHC 33.3 RDW Std Deviation 44.7 H RDW Coeff of Barbara 13.4 Plt Count 225 MPV 9.5 Immature Gran % (Auto) 0.600 Neut % (Auto) 85.1 H Lymph % (Auto) 4.8 L [place] % (Auto) 9.3 Eos % (Auto) 0.0 Baso % (Auto) 0.2 Absolute Neuts (auto) 10.8 H Absolute Lymphs (auto) 0.61 L Nucleated RBC % 0 Sodium 136 Potassium 4.0 Chloride 100 Carbon Dioxide 28.0 Anion Gap 8 BUN 18 Creatinine 1.47 H Estim Creat Clear Calc 45.29 Est GFR (MDRD) Af Amer 59 L Est GFR (MDRD) Non-Af 49 L BUN/Creatinine Ratio 12.2 Glucose 199 H Calcium 9.3 Urine Color Yellow Urine Clarity Clear Urine pH 5.0 Ur Specific [place] 1.020 Urine Protein 30 H Urine Glucose (UA) 50 H Urine Ketones 5 H Urine Occult Blood 10 H Urine Nitrite Negative Urine Bilirubin Negative Urine Urobilinogen Normal Ur Leukocyte Esterase 25 H Urine RBC 0 SEEN Urine WBC 0-5 SEEN Ur Squamous Epith Cells 0 SEEN Urine Bacteria 0 SEEN Urine Mucus 0 SEEN Radiography Diagnostic Testing: Clinical Impression(s) from Imaging Studies Chest X-Ray 12/23/22 14:42 IMPRESSION: No acute cardiopulmonary pathology Electronically Signed: Gabino Beach MD at 16:39 EST Reading Location ID and State: [address] [place] [address] Tel [phone], Service support , Discharge Plan Triage Chief Complaint: Weakness ED Midlevel Provider: Daria Vargas ED Provider: French Zelaya Dx/Rx/DC Orders Clinical Impression: Generalized weakness, Unable to ambulate Primary Care Provider: Eugene Andre
[2022-12-23] MEDS: 0.9% Normal Saline (1000mL) 1,000 ML 999 ML IV (15:03)
[2022-12-23 15:05] LABS: Absolute Lymphocyte Count 0.61 X10^3/uL (0.83-4.51); Absolute Neutrophil Count 10.8 X10^3/uL (2.0-7.7); Basophil# 0.02 X10^3/uL; Basophil% 0.2 % (0-1); Hematocrit 41.7 % (40-54); Hemoglobin 13.9 g/dL (13.0-16.5); Lymphocyte # 0.61 X10^3/ul (0.83-4.51); Lymphocyte % 4.8 % (19-41); Mean Corp Hgb Conc 33.3 g/dL (32-36); Mean Corpuscular Hgb 30.6 pg (27.0-32.0); Mean Corpuscular Volume 91.9 fL (80-94); Mean Platelet Vol. 9.5 fl (6.2-12.0); Monocyte# 1.18 X10^3/uL; Monocyte% 9.3 % (0-10); NRBC Flagged by Analyzer 0 % (0-5); Neutrophil # 10.82 X10^3/uL (2.7-7.7); Neutrophil % 85.1 % (47-70); Platelet Count 225 K/mm3 (150-450); RBC Distribution Width CV 13.4 % (11.6-14.6); RBC Distribution Width SD 44.7 fl (35.1-43.9); Red Blood Count 4.54 M/mm3 (4.6-6.2); White Blood Count 12.7 K/mm3 (4.4-11.0)
[2022-12-23 15:18] LABS: Anion Gap 8 (5-15); BUN 18 mg/dL (7-18); BUN/Creat Ratio 12.2 RATIO (10-20); Calcium,Total 9.3 mg/dL (8.5-10.1); Chloride 100 mmol/L (98-107); Creatinine, Serum 1.47 mg/dL (0.70-1.30); EST Glomerular Filtration Rate 49 mL/min (>60); Est Glom Filt Rate - Afr Amer 59 mL/min (>60); Estimated Creatinine Clearance 45.29 ml/min; Glucose 199 mg/dL (74-106); Sodium Level 136 mmol/L (136-145)
[2022-12-23 16:51] LABS: Bacteria 0 SEEN /hpf (None Seen); Mucous, Urine 0 SEEN /hpf (<or=2+); Red Blood Cells-Urine 0 SEEN /hpf (0-5); Squamous Epithelial Cells - UA 0 SEEN /hpf (0-5)
[2022-12-23 16:57] LABS: Color, Urine Yellow (Yellow); Glucose, Dipstick 50 mg/dl (Normal); Ketone-Dipstick 5 mg/dl (Negative); Leukocyte Esterase-Dipstick 25 /ul (Negative); Nitrite-Dipstick Negative (Negative); Occult Blood-Urine 10 /ul (Negative); Protein-Dipstick 30 mg/dl (Negative); Urine Bilirubin Dipstick Negative (Negative); Urine Clarity Clear (Clear); Urine Urobilinogen Normal (Normal)
[2022-12-23 17:12] LABS: White Blood Cells 0-5 SEEN /hpf (0-5)
--- NOTE | 2022-12-23 17:27 | HP.PCM.HOS_ITS ---
HPI - General General Date of Admission: 12/23/22 HPI Narrative CHRISTINA OWUSU, is a 82 M who presents to the hospital with weakness and debility and inability to complete ADLs. According to the he has been getting steadily weaker over the last couple of months and today she was unable to get him out of bed normally she is able to get him from his chair to his walker from his walker to his bed but today he had no strength. No fevers or chills at home though he did get a climbing temperature to 100.2 today here in the ER with a white count of 12. UA and chest x-ray look okay viral panel is pending. He does appear little bit drowsy has difficulty keeping his eyes open. He and his deny being around any sick contacts. [facility] Medical History Atherosclerotic heart disease of [place] coronary artery without angina pectoris Essential hypertension GERD (gastroesophageal reflux disease) Nonischemic cardiomyopathy MICHELLE (obstructive sleep apnea) Pure hypercholesterolemia RBBB (right bundle branch block) Type 2 diabetes mellitus Home Medications aspirin 81 mg chewable tablet 81 mg PO QHS 12/07/12 [History Last Taken 12/22/22] omeprazole 20 mg capsule,delayed release 20 mg PO DAILY 12/07/12 [History Last Taken 12/22/22] simvastatin 40 mg tablet 40 mg PO QHS CHOLESTEROL 12/07/12 [History Last Taken 12/22/22] fexofenadine 180 mg tablet (Jalyn Allergy) 180 mg PO DAILY Allergy Symptoms 12/21/18 [History Last Taken 12/22/22] cholecalciferol (vitamin D3) 25 mcg (1,000 unit) capsule 1,000 unit PO DAILY 09/03 [History Last Taken 12/22/22] omega-3 fatty acids 1,000 mg capsule (Fish Oil Concentrate) 1,000 mg PO QHS SUPPLEMENT 12/23/18 [History Last Taken 12/22/22] cyanocobalamin (vitamin B-12) 2,500 mcg tablet 1,000 mcg PO DAILY 03/19/20 [History Last Taken 12/22/22] carvedilol 12.5 mg tablet 12.5 mg PO BID #180 tabs 02/24/22 [Rx Last Taken 12/22/22] levothyroxine 50 mcg tablet 50 mcg PO QHS #90 tabs 08/01/22 [Rx Last Taken 12/22/22] carbidopa ER 25 mg-levodopa 100 mg tablet,extended release 1 tab PO TID PARKINSONS 12/23/22 [History Last Taken 12/22/22] losartan 25 mg tablet 25 mg PO QHS BLOOD PRESSURE 12/23/22 [History Last Taken 12/22/22] metformin 1,000 mg tablet 1,000 mg PO BID DIABETES 12/23/22 [History Last Taken 12/22/22] Allergy/AdvReac Type Severity Reaction Status Date / Time lidocaine AdvReac Hives Verified 02/24/22 08:53 Penicillins AdvReac Hives Verified 02/24/22 08:53 Sulfa (Sulfonamide AdvReac Hives Verified 02/24/22 08:53 Antibiotics) Family History Mother Colon cancer Surgical History History of right and left heart catheterization (LHC) (~04/20/09) Social History Smoking Status: Former smoker alcohol intake: current details: rare substance use type: does not use caffeine: Yes Type: coffee Number of servings: 2 ROS Constitutional Constitutional: Reports fatigue and weakness; Denies chills, fever(s) or malaise Eyes Eyes: Denies blurry vision ENT HEENT: Denies headache(s) or nasal discharge Cardiovascular Cardiovascular: Denies chest pain, dyspnea on exertion or syncope Respiratory/Chest Respiratory/Chest: Denies cough, shortness of breath at rest or shortness of breath with exertion Gastrointestinal Gastrointestinal: Denies constipation, diarrhea, nausea or vomiting Genitourinary Genitourinary: Denies dysuria Neurologic Neurologic: Denies focal weakness, numbness or tremor(s) Psychiatric Psychiatric: Denies anxiety or depression Vital Signs Vital Signs Vital Signs: 12/23/22 14:27 12/23/22 15:01 Temperature 98.0 F Temperature Source Temporal Pulse Rate 82 Respiratory Rate 16 Respiratory Pattern Normal Blood Pressure 131/75 H Blood Pressure Mean 93 Pulse Ox 95 Oxygen Delivery Method Room Air Weight Weight: 195 lb 12.328 oz Body Mass Index (BMI) 25.8 Physical Exam Narrative General: Drowsy but alert, Oriented x3, Cooperative, No apparent distress HEENT: Atraumatic, PERRLA, EOMI, Normocephalic Oral: Moist Mucosa Neck: Supple, No JVD Lungs: Diminished, Normal air movement, No rhonchi, No wheeze, No rales Cardiovascular: Regular rate, Regular Rhythm, Normal S1, Normal S2, No murmurs Abdomen: Soft, Non Tender, Non-Distended, No Hepato-splenomegaly Extremities: Edema, Capillary Refill Less than 3 Seconds Skin: No rashes, No breakdown Musculoskeletal: No Tenderness to Palpation of Joints or Extremities Neurological: Moves all extremities, Sensory exam intact to light touch and pain Psych/Mental Status: Flat Results Lab / Micro Data 12/23/22 14:50 12/23/22 14:50 Labs: Laboratory Results - last 24 hr 12/23/22 14:50: WBC 12.7 H, RBC 4.54 L, Hgb 13.9, Hct 41.7, MCV 91.9, MCH 30.6, MCHC 33.3, RDW Std Deviation 44.7 H, RDW Coeff of Barbara 13.4, Plt Count 225, MPV 9.5, Immature Gran % (Auto) 0.600, Neut % (Auto) 85.1 H, Lymph % (Auto) 4.8 L, [place] % (Auto) 9.3, Eos % (Auto) 0.0, Baso % (Auto) 0.2, Absolute Neuts (auto) 10.8 H, Absolute Lymphs (auto) 0.61 L, Nucleated RBC % 0, Sodium 136, Potassium 4.0, Chloride 100, Carbon Dioxide 28.0, Anion Gap 8, BUN 18, Creatinine 1.47 H, Estim Creat Clear Calc 45.29, Est GFR (MDRD) Af Amer 59 L, Est GFR (MDRD) Non-Af 49 L, BUN/Creatinine Ratio 12.2, Glucose 199 H, Calcium 9.3 12/23/22 16:45: Urine Color Yellow, Urine Clarity Clear, Urine pH 5.0, Ur Specific [place] 1.020, Urine Protein 30 H, Urine Glucose (UA) 50 H, Urine Ketones 5 H, Urine Occult Blood 10 H, Urine Nitrite Negative, Urine Bilirubin Negative, Urine Urobilinogen Normal, Ur Leukocyte Esterase 25 H, Urine RBC 0 SEEN, Urine WBC 0-5 SEEN, Ur Squamous Epith Cells 0 SEEN, Urine Bacteria 0 SEEN, Urine Mucus 0 SEEN Radiology Impression Chest X-Ray 12/23/22 14:42 IMPRESSION: No acute cardiopulmonary pathology Electronically Signed: Gabino Beach MD at 16:39 EST Reading Location ID and State: [address] [place] [address] Tel , Service support , Assessment & Plan Assessment/Plan (1) Generalized weakness: (2) Unable to ambulate: PLAN: Plan 1. Weakness and debility with an inability to complete ADLs ? PT/OT ? Viral panel is pending secondary to a leukocytosis as well as an elevated temperature to 100.2 ? He did recently have his Sinemet increased and he has a slight rise in his creatinine though not enough to indicate an ESVIN 2. HTN/HLD ? Blood pressures do appear to be stable ? Can resume his home blood pressure medications ? We will monitor and make adjustments as necessary ? Continue with aspirin ? Echo in 2019 with normal EF and unable to assess for diastolic dysfunction 3. DM2 ? We will hold his metformin ? Sliding scale insulin ? Accu-Cheks ACHS ? We will monitor and make adjustments as necessary 4. Hypothyroidism ? Stable ? Continue with Synthroid 5. GERD ? Stable?continue with PPI 6. Parkinson's disease ? states that this was clinically diagnosed he has not had any testing ? Sinemet was recently increased, will continue DVT: SCDs Charges/Coding Visit Charges Inpatient E&M: 00465 Init Hosp L2
[2022-12-23 17:28] VITALS: BP 136/70; PULSE 97; RESP 22; TEMP 37.9; O2SAT 95
[2022-12-23] MEDS: Acetaminophen 500 MG Tablet 1000 MG PO (18:13)
[2022-12-23 18:36] VITALS: BMI 22.1
[2022-12-23 18:56] VITALS: BP 138/75; PULSE 88; RESP 17; TEMP 37.4; O2SAT 94
[2022-12-23 20:58] VITALS: BP 126/73; PULSE 84; RESP 18; TEMP 37.3; O2SAT 94
[2022-12-23] MEDS: Carvedilol 12.5 MG Tablet PO (21:00)
[2022-12-23] MEDS: Atorvastatin Calcium 20 MG Tablet PO (21:00)
[2022-12-23] MEDS: Levothyroxine 50 MCG Tablet PO (21:00)
[2022-12-23] MEDS: Losartan Potassium 25 MG Tablet PO (21:00)
[2022-12-23] MEDS: Menthol/Lanolin/Calamine/Znox 113 GM Tube 1 APPLIC TOPICAL (21:00)
[2022-12-23] MEDS: Aspirin 81 MG TAB.CHEW PO (21:00)
[2022-12-23] MEDS: Insulin Lispro 100 UNIT/ML INSULN.PEN SC (21:09)
[2022-12-23 21:32] LABS: Bedside Glucose 156 mg/dL (74-106)
[2022-12-24 02:20] VITALS: BP 108/56; PULSE 85; RESP 16; TEMP 37.2; O2SAT 94
[2022-12-24 06:34] LABS: Bedside Glucose 144 mg/dL (74-106)
[2022-12-24 07:20] LABS: Absolute Lymphocyte Count 0.75 X10^3/uL (0.83-4.51); Absolute Neutrophil Count 9.2 X10^3/uL (2.0-7.7); Basophil# 0.02 X10^3/uL; Basophil% 0.2 % (0-1); Hematocrit 36.9 % (40-54); Hemoglobin 12.2 g/dL (13.0-16.5); Lymphocyte # 0.75 X10^3/ul (0.83-4.51); Lymphocyte % 6.6 % (19-41); Mean Corp Hgb Conc 33.1 g/dL (32-36); Mean Corpuscular Hgb 30.7 pg (27.0-32.0); Mean Corpuscular Volume 92.7 fL (80-94); Mean Platelet Vol. 9.8 fl (6.2-12.0); Monocyte% 10.6 % (0-10); NRBC Flagged by Analyzer 0 % (0-5); Neutrophil # 9.17 X10^3/uL (2.7-7.7); Neutrophil % 81.4 % (47-70); Platelet Count 199 K/mm3 (150-450); RBC Distribution Width CV 13.5 % (11.6-14.6); RBC Distribution Width SD 45.9 fl (35.1-43.9); Red Blood Count 3.98 M/mm3 (4.6-6.2); White Blood Count 11.3 K/mm3 (4.4-11.0)
[2022-12-24 07:35] LABS: Anion Gap 6 (5-15); BUN 25 mg/dL (7-18); BUN/Creat Ratio 17.1 RATIO (10-20); Calcium,Total 8.3 mg/dL (8.5-10.1); Chloride 105 mmol/L (98-107); Creatinine, Serum 1.46 mg/dL (0.70-1.30); EST Glomerular Filtration Rate 49 mL/min (>60); Est Glom Filt Rate - Afr Amer 60 mL/min (>60); Estimated Creatinine Clearance 49.51 ml/min; Glucose 155 mg/dL (74-106); Potassium 3.7 mmol/L (3.5-5.1); Sodium Level 137 mmol/L (136-145)
[2022-12-24 08:01] VITALS: BP 135/70; PULSE 116; RESP 18; TEMP 36.8; O2SAT 94
[2022-12-24] MEDS: Carvedilol 12.5 MG Tablet PO ×2 (09:41→21:15)
[2022-12-24] MEDS: Pantoprazole Sodium 20 MG Tablet PO (09:41)
[2022-12-24] MEDS: Menthol/Lanolin/Calamine/Znox 113 GM Tube 1 APPLIC TOPICAL ×2 (09:43→21:18)
--- NOTE | 2022-12-24 10:11 | CASEMGMT ---
Discharge Planning A list of?SNF providers including quality and resource use data and consistent with the patient's preferred geographic region, medical needs, and insurance network was created in [facility] Guide.? This list was provided to the SW. Brunilda Haile Discharge Planning Asst.
--- NOTE | 2022-12-24 11:32 | CASEMGMT ---
Social Work SW?to room to meet with patient for initial transition planning/care coordination?assessment.?SW?introduced self and role at [facility].? Pt and present during assessment, answering most of the questions and pt occasionally adding short answers. Pt's states pt is usually A/Ox 3 however yesterday and today he is more confused.?? Care providers, pharmacy, and demographics verified. PCP: Jes Colon Pharmacy: [facility] Insurance: Anthem Medicare Living Will/HPOA:?Pt has not completed. LNOK: Mami Arias Living Arrangements: Pt lives with his in a one story home with 4 steps to enter. Pt's assisted with bathing and toileting. Pt is able to ambulate around house. Transportation: pt drives and usually rides along DME: ? walker and cane HHC/SNF: none previously PLAN: Pt's states that pt has been getting weaker over the last several weeks and specifically over the last day and pt now cannot get out of a chair. Pt's requesting SNF placement for pt and pt is agreeable. A list of SNF providers including quality and resource use data and consistent with the patient?s preferred geographic region, medical needs, and insurance network were provided from the [facility] Guide. Pt and 's preferred provider is [facility]. DC ophthalmology assistant updated and referral to be sent to [facility]. SW will await determination of acceptance. Precert will be needed prior to admission. DEMETRIO Banks
--- NOTE | 2022-12-24 11:39 | CASEMGMT ---
Discharge Planning Referral sent to [facility] via [facility]. Brunilda Haile, Discharge Planning Asst.
[2022-12-24] MEDS: Insulin Lispro 100 UNIT/ML INSULN.PEN SC ×3 (11:46→21:15)
[2022-12-24] MEDS: CARBIDOPA/LEVODOPA 1 EACH TABLET.ER PO ×2 (14:38→21:15)
--- NOTE | 2022-12-24 14:56 | CHAPLAIN ---
Type of Pastoral Visit _x__ Initial Visit ___ Follow-up Visit ___ On-call Visit ___ General Patient Visit ___ Spiritual Assessment ___ Family Conference ___ Bereavement ___ Rapid Response ___ Code Blue ___ Other (describe below) Pastoral Care Referral From _x__ Patient _x__ Family ___ Nurse ___ Physician ___ Cash Checker ___ Meter Repairer ___ Other (describe below) Sacrament/Intervention _x__ Active listening ___ Anointing ___ Zoroastrian ___ Bereavement ___ Communion ___ Nila exploration ___ ___ Life review _x__ Prayer ___ Reconciliation ___ Sacrament of Sick _x__ Supportive presence ___ Wedding ___ Other (describe below) Pastoral Comments patient is sitting in chair and did acknowledge this filter press tender; however pt looks to fall asleep and is only engaged in answering a question when spoken to directly and loudly; pt did not engage in a conversation; spouse does the talking and explains the situation which is new for this patient; spouse recognizes that pt needs more care and therapy than she can give; pt has limited help from others; while pt and spouse are members of a [employer] they have not been active recently and are reluctant to ask for help there; spouse welcomes the time given to explore her needs; both welcome prayer
--- NOTE | 2022-12-24 14:58 | CASEMGMT ---
Social Work SW met with pt and and notified that pt has been accepted at [facility] and precert has been started at this time. is agreeable to dc plan. Plan: [facility], pending DEMETRIO Medina
[2022-12-24] MEDS: 0.9% Normal Saline (1000mL) 1,000 ML 100 ML IV (15:34)
--- NOTE | 2022-12-24 16:00 | PN.HOSP_ITS ---
Reason for Visit Reason for Visit: Diagnoses Difficulty in walking, not elsewhere classified (12/23/22) Weakness (12/23/22) Subjective Subjective Patient was seen and examined today, nursing states that his oral intake is very poor at this time, I talked to his who was in the room at the time my examination. She would like the patient to go to [facility] for short-term rehab services, she is unable to get him out of a chair at home by herself. Objective Data Objective Data Vital Signs: Vital Signs Temp Pulse Resp BP Pulse Ox O2 Del Method 98.2 F 116 H 18 135/70 H 94 Room Air 12/24/22 08:01 12/24/22 08:01 12/24/22 08:01 12/24/22 08:01 12/24/22 08:01 12/24/22 14:00 Oxygen Delivery Method Room Air Weight: 86.75 kg Body Mass Index (BMI) 22.1 Intake & Output: Intake and Output for Last 24 Hours 12/22/22 12/23/22 12/24/22 23:59 23:59 23:59 Intake Total 1000 / 1000 800 / 800 Balance 1000 / 1000 800 / 800 Lab / Micro Data 12/24/22 06:50 12/24/22 06:50 Labs: Laboratory Results - last 24 hr 12/23/22 16:45: Urine Color Yellow, Urine Clarity Clear, Urine pH 5.0, Ur Specific [place] 1.020, Urine Protein 30 H, Urine Glucose (UA) 50 H, Urine Ketones 5 H, Urine Occult Blood 10 H, Urine Nitrite Negative, Urine Bilirubin Negative, Urine Urobilinogen Normal, Ur Leukocyte Esterase 25 H, Urine RBC 0 SEEN, Urine WBC 0-5 SEEN, Ur Squamous Epith Cells 0 SEEN, Urine Bacteria 0 SEEN, Urine Mucus 0 SEEN 12/23/22 21:04: POC Glucose 156 H 12/24/22 06:16: POC Glucose 144 H 12/24/22 06:50: WBC 11.3 H, RBC 3.98 L, Hgb 12.2 L, Hct 36.9 L, MCV 92.7, MCH 30.7, MCHC 33.1, RDW Std Deviation 45.9 H, RDW Coeff of Barbara 13.5, Plt Count 199, MPV 9.8, Immature Gran % (Auto) 1.200 H, Neut % (Auto) 81.4 H, Lymph % (Auto) 6.6 L, Bay % (Auto) 10.6 H, Eos % (Auto) 0.0, Baso % (Auto) 0.2, Absolute Neuts (auto) 9.2 H, Absolute Lymphs (auto) 0.75 L, Nucleated RBC % 0, Sodium 137, Potassium 3.7, Chloride 105, Carbon Dioxide 26.0, Anion Gap 6, BUN 25 H, Creatinine 1.46 H, Estim Creat Clear Calc 49.51, Est GFR (MDRD) Af Amer 60, Est GFR (MDRD) Non-Af 49 L, BUN/Creatinine Ratio 17.1, Glucose 155 H, Calcium 8.3 L Micro: Microbiology 12/23/22 19:55 Mucosa - Nasopharyngeal Respiratory Panel (PCR) - Final 12/23/22 18:55 Nasal Secretion SARS-CoV-2 Antigen (Rapid) - Final Radiography Diagnostic Testing: Radiology Impression Chest X-Ray 12/23/22 14:42 IMPRESSION: No acute cardiopulmonary pathology Electronically Signed: Gabino Beach MD at 16:39 EST Reading Location ID and State: [address] [place] [address] Tel , Service support , Physical Exam Const alert and no apparent distress Constitutional Narrative: Patient appears older than stated age, patient's affect is blunted and he appears somewhat somnolent General Appearance: cooperative, well kempt and well developed Orientation / Consciousness: awake, oriented to person and oriented to place HEENT normocephalic and head/scalp atraumatic Mouth: dry mucous membranes Eyes PERRL, EOMs intact bilaterally and conjunctivae normal Neck supple, no JVD, thyroid normal and no carotid bruits General: trachea midline Resp normal respiratory effort, no retractions, no use of accessory muscles and clear to auscultation bilaterally Auscultation: Negative for rales, rhonchi or wheezes Cardio regular rate, regular rhythm, S1 normal heart sound, S2 normal heart sound, no murmurs, no rub and no gallops GI normal to inspection, nondistended, normoactive bowel sounds, soft to palpation, non-tender and non-distended Extremity no clubbing, cyanosis or edema Skin no rashes or lesions noted General Skin Exam: no breakdown Neuro CN's II-XII intact bilaterally, no focal motor deficits and no sensory deficits noted Neuro Narrative: Patient's speech is slow and deliberate Sensorium / Orientation: awake, alert, oriented to person and oriented to place Psych Psych Narrative: Patient has flat and blunted affect. Assessment & Plan Assessment/Plan (1) Generalized weakness: PLAN: Plan 1. Acute on chronic debility-patient will continue to see PT and OT, he will need short-term placement in a correction facility for temporary rehab services. #2 type 2 diabetes-patient's blood sugars will be monitored, sliding scale insulin will be given as needed #3 Parkinson's disease-complicates care, medical course, recovery, and prognosis-patient is on Sinemet at this time #4 hypothyroidism-patient is on Synthroid #5 essential hypertension-patient is currently on Cozaar-blood pressure will be monitored #6 hyperlipidemia-patient is on atorvastatin, monitor as needed Total clinical time spent by myself addressing patient's medical issues, reviewing all of his data, and collaborating with patient's care team: 25 minutes Charges/Coding Visit Charges Inpatient E&M: 49803 Subs Hosp L1
[2022-12-24 16:02] VITALS: BP 104/54; PULSE 78; RESP 18; TEMP 36.8; O2SAT 98
[2022-12-24 16:55] LABS: Bedside Glucose 186 mg/dL (74-106)
[2022-12-24 19:56] LABS: Bedside Glucose 178 mg/dL (74-106)
[2022-12-24 20:10] VITALS: BP 131/58; PULSE 76; RESP 16; TEMP 36.6; O2SAT 95
[2022-12-24] MEDS: Aspirin 81 MG TAB.CHEW PO ×2 (21:15)
[2022-12-24] MEDS: Levothyroxine 50 MCG Tablet PO (21:15)
[2022-12-24] MEDS: Atorvastatin Calcium 20 MG Tablet PO (21:15)
[2022-12-24] MEDS: Losartan Potassium 25 MG Tablet PO (21:15)
[2022-12-24 22:00] LABS: Bedside Glucose 183 mg/dL (74-106)
[2022-12-25 02:10] VITALS: BP 123/70; PULSE 80; RESP 16; TEMP 37.1; O2SAT 96
[2022-12-25] MEDS: 0.9% Normal Saline (1000mL) 1,000 ML 100 ML IV ×2 (02:10→11:23)
[2022-12-25] MEDS: CARBIDOPA/LEVODOPA 1 EACH TABLET.ER PO ×2 (06:12→14:50)
[2022-12-25 06:33] LABS: Bedside Glucose 134 mg/dL (74-106)
[2022-12-25 07:30] VITALS: O2SAT 94
[2022-12-25] MEDS: Menthol/Lanolin/Calamine/Znox 113 GM Tube 1 APPLIC TOPICAL (08:15)
[2022-12-25] MEDS: Carvedilol 12.5 MG Tablet PO (08:16)
[2022-12-25] MEDS: Pantoprazole Sodium 20 MG Tablet PO (08:16)
--- NOTE | 2022-12-25 09:56 | CASEMGMT ---
Met with patient and his to complete MCGHEE form. MCGHEE form explained to both who voiced understanding. Patient requested that his sign form. Original form placed in pt?s chart and copy provided to?patient. Brunilda Haile, Discharge Planning Asst
[2022-12-25] MEDS: Insulin Lispro 100 UNIT/ML INSULN.PEN SC ×2 (11:23→16:45)
[2022-12-25 11:41] LABS: Bedside Glucose 186 mg/dL (74-106)
--- NOTE | 2022-12-25 14:57 | PCM.TXEXTCAR ---
Diet Diet Order/Speech Therapy: 12/23/22 18:42 Diet: Cardiac - Heart Healthy Food consistency:: Regular Liquid Consistency:: Regular/Thin Routine Orders/Code Status Routine Lab Work: - (Check blood sugars AC nightly, sliding scale Humalog subcu: 200-250: 5 units, 251-300: 8 units, 301-350: 12 units) Therapies Weight Bearing: Full weight bearing (with walker) Physical Therapy: Eval and Treat Occupational Therapy: Eval and Treat Speech Therapy: Eval and Treat Problem/Diagnosis (1) Generalized weakness: Status: Acute Code(s): R53.1 - Weakness Plan 1. Acute on chronic debility-patient will continue to see PT and OT, he will need short-term placement in a prison facility for temporary rehab services. #2 type 2 diabetes-patient's blood sugars will be monitored, sliding scale insulin will be given as needed #3 Parkinson's disease-complicates care, medical course, recovery, and prognosis-patient is on Sinemet at this time #4 hypothyroidism-patient is on Synthroid #5 essential hypertension-patient is currently on Cozaar-blood pressure will be monitored #6 hyperlipidemia-patient is on atorvastatin, monitor as needed Total clinical time spent by myself addressing patient's medical issues, reviewing all of his data, and collaborating with patient's care team: 25 minutes Allergies/Procedures Done in Hospital Allergies lidocaine Adverse Reaction (Verified 02/24/22 08:53) Hives Penicillins Adverse Reaction (Verified 02/24/22 08:53) Hives Sulfa (Sulfonamide Antibiotics) Adverse Reaction (Verified 02/24/22 08:53) Hives Procedures: None Type of Care/Length of Stay Estimated LOS: Convalescent Care Less Than 30 days Type of Care Needed: Skilled Rehab Potential: Good Prognosis: Good Additional Orders/Day of Discharge H&P will serve as current which was dated: 12/23/22 Day of Discharge: 12/25/22 Discharge Plan Admission Admit Date/Time: 12/23/22 17:25 Primary Reason for Your Visit: Generalized weakness, Parkinson's disease Attending Provider: Jayson Alamo Primary Care Provider: Eugene Andre Consulting Providers: Earl Hernandez Discharge Orders/Prescriptions Prescriptions: New menthol-zinc oxide [Calmoseptine] 0.44-20.6 % Ointment 1 applic topical BID Qty: 0 0RF Protocol: *Topical Application Instructions APPLICATION INSTRUCTIONS: buttocks Continued cholecalciferol (vitamin D3) 1,000 unit capsule 1,000 unit PO DAILY cyanocobalamin (vitamin B-12) 2,500 mcg tablet 1,000 mcg PO DAILY fexofenadine [Jalyn Allergy] 180 mg tablet 180 mg PO DAILY carvedilol 12.5 mg tablet 12.5 mg PO BID Qty: 180 3RF simvastatin 40 MG tablet 40 mg PO QHS omeprazole 20 MG capsule 20 mg PO DAILY aspirin 81 MG tablet,chewable 81 mg PO QHS carbidopa-levodopa 25-100 mg tablet extended release 1 tab PO TID metformin 1,000 mg tablet 1,000 mg PO BID losartan 25 mg tablet 25 mg PO QHS levothyroxine 50 mcg tablet 50 mcg PO QHS Qty: 90 4RF Discontinued omega-3 fatty acids [Fish Oil Concentrate] 1,000 mg capsule 1,000 mg PO QHS Referrals / Follow Up: Eugene Andre MD [Primary Care Provider] - Disposition Disposition (needs filled in before D/C Order can be placed): Intermediate Facility
[2022-12-25 15:00] VITALS: BP 114/67; PULSE 78; RESP 16; TEMP 37.2; O2SAT 98
--- NOTE | 2022-12-25 15:05 | PCM.DC.SUM ---
Providers Date of Admission: 12/23/22 Date of Discharge: 12/25/22 Primary Care Physician: Dr. Eugene Andre MD Reason For Visit: DEBILITY Diagnosis Discharge Diagnosis (1) Generalized weakness: Status: Acute Code(s): R53.1 - Weakness Plan 1. Acute on chronic debility-patient will continue to see PT and OT, he will need short-term placement in a longterm facility for temporary rehab services. #2 type 2 diabetes-patient's blood sugars will be monitored, sliding scale insulin will be given as needed #3 Parkinson's disease-complicates care, medical course, recovery, and prognosis-patient is on Sinemet at this time #4 hypothyroidism-patient is on Synthroid #5 essential hypertension-patient is currently on Cozaar-blood pressure will be monitored #6 hyperlipidemia-patient is on atorvastatin, monitor as needed Total clinical time spent by myself addressing patient's medical issues, reviewing all of his data, and collaborating with patient's care team: 25 minutes Medications at Discharge Home Medications aspirin 81 mg chewable tablet 81 mg PO QHS 12/07/12 omeprazole 20 mg capsule,delayed release 20 mg PO DAILY 12/07/12 simvastatin 40 mg tablet 40 mg PO QHS CHOLESTEROL 12/07/12 fexofenadine 180 mg tablet (Jalyn Allergy) 180 mg PO DAILY Allergy Symptoms 12/21/18 cholecalciferol (vitamin D3) 25 mcg (1,000 unit) capsule 1,000 unit PO DAILY 12/23/18 cyanocobalamin (vitamin B-12) 2,500 mcg tablet 1,000 mcg PO DAILY 03/19/20 carvedilol 12.5 mg tablet 12.5 mg PO BID #180 tabs 02/24/22 levothyroxine 50 mcg tablet 50 mcg PO QHS #90 tabs 08/01/22 carbidopa ER 25 mg-levodopa 100 mg tablet,extended release 1 tab PO TID PARKINSONS 12/23/22 losartan 25 mg tablet 25 mg PO QHS BLOOD PRESSURE 12/23/22 metformin 1,000 mg tablet 1,000 mg PO BID DIABETES 12/23/22 menthol 0.44 %-zinc oxide 20.6 % topical ointment (Calmoseptine) 1 applic topical BID #0 grams 12/25/22 Hospital Course Operations None Procedures None Summary of Care Provided Minutes Spent on Discharge: 32 Hospital Course: This 82-year-old white male was seen in the emergency room at [facility] after being brought in by his family due to extreme weakness at home. Patient had a history of Parkinson's disease and is unable to care for the patient. Patient was placed in observation status on MedSurg 3 and seen by PT and OT, it was determined that he would benefit from short-term longterm on placement and the patient and his agreed. On 12/25/2022, patient was seen and examined: On examination he appeared older than his stated age. Vital signs as documented. Skin warm and dry and without overt rashes. Neck without JVD, neck was supple, trachea midline, thyroid was normal. Lungs clear bilaterally, normal air movement was noted. Heart exam notable for regular rhythm, normal sounds and absence of murmurs, rubs or gallops. Abdomen unremarkable and without evidence of organomegaly, masses, or abdominal aortic enlargement. Bowel sounds are present, abdomen is not distended. Extremities nonedematous, no cyanosis was noted, no clubbing was noted. Neuro: Cranial nerves II through XII are grossly intact, no focal motor deficits were noted, sensation to light touch and pinprick intact, motor exam 5/5 throughout. Psych: Patient is alert and oriented x3, he does not appear anxious or depressed, he does not appear agitated. He has a flat affect. Patient was transferred to a longterm facility on 12/25/2022 in stable condition Weight / BMI Weight Weight: 86.75 kg Body Mass Index (BMI) 22.1 ABG / Lab / Microbiology Data 12/24/22 06:50 12/24/22 06:50 Laboratory: Laboratory Results - last 24 hr 12/24/22 11:43: POC Glucose 178 H 12/24/22 16:37: POC Glucose 186 H 12/24/22 21:14: POC Glucose 183 H 12/25/22 06:11: POC Glucose 134 H 12/25/22 11:21: POC Glucose 186 H Microbiology: Microbiology 12/23/22 19:55 Mucosa - Nasopharyngeal Respiratory Panel (PCR) - Final 12/23/22 18:55 Nasal Secretion SARS-CoV-2 Antigen (Rapid) - Final Meaningful Use Info Meaningful Use Diagnoses (Choose all that apply): None applicable Discharge Plan Admission Admit Date/Time: 12/23/22 17:25 Primary Reason for Your Visit: Generalized weakness, Parkinson's disease Attending Provider: Jayson Alamo Primary Care Provider: Eugene Andre Consulting Providers: Earl Hernandez Discharge Orders/Prescriptions Prescriptions: New menthol-zinc oxide [Calmoseptine] 0.44-20.6 % Ointment 1 applic topical BID Qty: 0 0RF Protocol: *Topical Application Instructions APPLICATION INSTRUCTIONS: buttocks Continued cholecalciferol (vitamin D3) 1,000 unit capsule 1,000 unit PO DAILY cyanocobalamin (vitamin B-12) 2,500 mcg tablet 1,000 mcg PO DAILY fexofenadine [Jalyn Allergy] 180 mg tablet 180 mg PO DAILY carvedilol 12.5 mg tablet 12.5 mg PO BID Qty: 180 3RF simvastatin 40 MG tablet 40 mg PO QHS omeprazole 20 MG capsule 20 mg PO DAILY aspirin 81 MG tablet,chewable 81 mg PO QHS carbidopa-levodopa 25-100 mg tablet extended release 1 tab PO TID metformin 1,000 mg tablet 1,000 mg PO BID losartan 25 mg tablet 25 mg PO QHS levothyroxine 50 mcg tablet 50 mcg PO QHS Qty: 90 4RF Discontinued omega-3 fatty acids [Fish Oil Concentrate] 1,000 mg capsule 1,000 mg PO QHS Referrals / Follow Up: Eugene Andre MD [Primary Care Provider] - Disposition Disposition (needs filled in before D/C Order can be placed): Residential Facility Charges/Coding Visit Charges Inpatient E&M: 85731 Disch Hosp >30min
--- NOTE | 2022-12-25 15:17 | PHA.DC.MR.R ---
Pharmacy [place] Med Reconciliation Pharmacy Service has performed discharge medication reconciliation for this patient upon transfer to [facility]. The patient's discharge medication list was reviewed for discrepancies and discrepancies were resolved. Medications at Discharge Home Medications aspirin 81 mg chewable tablet 81 mg PO QHS 12/07/12 omeprazole 20 mg capsule,delayed release 20 mg PO DAILY 12/07/12 simvastatin 40 mg tablet 40 mg PO QHS CHOLESTEROL 12/07/12 fexofenadine 180 mg tablet (Jalyn Allergy) 180 mg PO DAILY Allergy Symptoms 12/21/18 cholecalciferol (vitamin D3) 25 mcg (1,000 unit) capsule 1,000 unit PO DAILY 12/23/18 cyanocobalamin (vitamin B-12) 2,500 mcg tablet 1,000 mcg PO DAILY 03/19/20 carvedilol 12.5 mg tablet 12.5 mg PO BID #180 tabs 02/24/22 levothyroxine 50 mcg tablet 50 mcg PO QHS #90 tabs 08/01/22 carbidopa ER 25 mg-levodopa 100 mg tablet,extended release 1 tab PO TID PARKINSONS 12/23/22 losartan 25 mg tablet 25 mg PO QHS BLOOD PRESSURE 12/23/22 metformin 1,000 mg tablet 1,000 mg PO BID DIABETES 12/23/22 menthol 0.44 %-zinc oxide 20.6 % topical ointment (Calmoseptine) 1 applic topical BID #0 grams 12/25/22
--- NOTE | 2022-12-25 15:38 | CASEMGMT ---
Social Work Precert has been obtained.? Physician updated and pt is ready for discharge today.? PASRR completed in [facility] and sent along with discharge orders to [facility] via [facility].? Transportation arranged with [facility] ambulance for 5:00 pickup via cot.? SW met with pt and and they are agreeable to discharge plan as stated above.? [facility] and bedside nurse notified of discharge time. Disposition: [facility], skilled level of care DEMET[facility] aBnks
[2022-12-25 17:48] LABS: Bedside Glucose 168 mg/dL (74-106)
== END 2022-12-25 17:10 | disposition skilled nursing facility (03) ==
LOC: ED 17:29 → MS3 17:36
PROVIDERS: Physician Assistant; Admitting Provider Family Medicine; Emergency Provider Student in an Organized Health Care Education/Training Program; PCP Family Medicine; Visit Provider Internal Medicine
DX: E86.0 Dehydration (principal); I42.8 Other cardiomyopathies; E11.9 Type 2 diabetes mellitus without complications; Z87.891 Personal history of nicotine dependence; R53.81 Other malaise; I44.0 Atrioventricular block, first degree; I10 Essential (primary) hypertension; Z79.84 Long term (current) use of oral hypoglycemic drugs; Z79.82 Long term (current) use of aspirin; E78.00 Pure hypercholesterolemia, unspecified; I25.10 Atherosclerotic heart disease of native coronary artery without angina pectoris; K21.9 Gastro-esophageal reflux disease without esophagitis; G47.33 Obstructive sleep apnea (adult) (pediatric); Z79.899 Other long term (current) drug therapy; E03.9 Hypothyroidism, unspecified; Z79.890 Hormone replacement therapy; G20.A1 Parkinson's disease without dyskinesia, without mention of fluctuations
CPT/HCPCS: 71045; 80048; 81001; 82962; 85025; 87633; 87811; 93005; 96360; 96361; 97110; 97116; 97162; 97166; 97530; 97535; 99221; 99285; 99406; J7030; P9612; A4216; G0378